=== PATIENT | female | born 1965 | race Caucasian/White ===

== ENCOUNTER → 2019-05-26 | Outpatient (CLI) | payer OTHER ==
[2019-05-26 15:38] LABS: Appearance,Urine Clear (Clear); Bilirubin,Urine Negative (Negative); Blood,Urine Negative (Negative); Color,Urine Light Yellow; Glucose,Urine (UA) Negative (Negative); Ketones,Urine Negative (Negative); Leukocyte Esterase,Urine Moderate (Negative); Mucus,Urine Rare /hpf; Nitrite,Urine Negative (Negative); PH, Urine 5.5 (5.0-8.0); Protein,Urine Negative (Negative); RBC,Urine 1 /hpf (0-5); Specific Gravity,Urine 1.015 (1.001-1.035); Squamous Epithelial Cell,Urine 2 /hpf (0-4); Urobilinogen,Urine <2.0 mg/dL (<2.0); WBC,Urine 10 /hpf (0-5)
[2019-05-26 15:44] LABS: INR 0.9 (<1.2); Partial Thromboplastin Time 25.8 sec (22.0-30.0); Prothrombin Time 10.2 sec (9.0-12.0)
[2019-05-26 15:57] LABS: Albumin 4.5 g/dL (3.5-5.0); Calcium 9.9 mg/dL (8.4-10.2); Potassium 4.7 mmol/L (3.5-5.1); Total Bilirubin 0.5 mg/dL (0.2-1.3); Total Protein 7.5 g/dL (6.3-8.2)
== END | disposition home or self-care (01) ==
LOC: LABPAT 14:18
PROVIDERS: ATTEND Orthopaedic Surgery
DX: Z01.818 Encounter for other preprocedural examination (principal); Z01.812 Encounter for preprocedural laboratory examination
CPT/HCPCS: 80053; 81001; 85610; 85730; 87070; 93005

== ENCOUNTER 2019-06-09 05:29 | Inpatient (IN) | payer OTHER ==
[2019-06-03 09:48] VITALS: BMI 35.3
[~2019-06-09 05:29] MED LIST: ACETAMINOPHEN TAB 500 MG TAB PO ONE; GABAPENTIN 300 MG CAP PO ONE; MELOXICAM 7.5 MG TAB PO ONE; TRANEXAMIC ACID 1,000 MG in SODIUM CHLORIDE 0.9% 100 ML IVPB ONE
[2019-06-09] MEDS ORDERED: MIDAZOLAM 2 MG/2 ML VIAL IV PRN (05:34)
[2019-06-09] MEDS ORDERED: DEXAMETHASONE SOD PHOSPHATE 10 MG/ML 1 ML VIAL IV ONE (05:34)
[2019-06-09] MEDS ORDERED: HYDROmorphone 0.5 MG/0.5 ML SYRINGE IVP PRN ×3 (05:34→06:51)
[2019-06-09] MEDS ORDERED: ONDANSETRON 4 MG/2 ML VIAL IVP ONE (05:34)
[2019-06-09] MEDS ORDERED: SCOPOLAMINE 1.5MG/72HR PATCH TRANSDERM ONE (05:34)
[2019-06-09] MEDS ORDERED: ROPIVACAINE 246.25 MG, EPINEPHrine 0.5 MG, KETOROLAC 30 MG, cloNIDine HCL/PF 80 MCG, WA... MISCELLANE ONE ×5 (06:00)
[2019-06-09] MEDS: LACTATED RINGERS 1,000 ML IV SCH (06:27)
[2019-06-09] MEDS ORDERED: MIDAZOLAM 2 MG/2 ML VIAL ONE (06:50)
[2019-06-09] MEDS ORDERED: SODIUM CHLORIDE 0.9% 100 ML BAG ONE (06:50)
[2019-06-09] MEDS ORDERED: GLYCOPYRROLATE 0.2 MG/ML 2 ML VIAL ONE (06:50)
[2019-06-09] MEDS ORDERED: SODIUM CHLORIDE 0.9% IRRIG 1,000 ML BTL IRRIGATION ONE (06:50)
[2019-06-09] MEDS ORDERED: TRANEXAMIC ACID 1,000 MG/10 ML VIAL ONE (06:50)
[2019-06-09] MEDS ORDERED: PROPOFOL 10 MG/ML 20 ML VIAL IV ONE (06:50)
[2019-06-09] MEDS ORDERED: HEPARIN SODIUM,PORCINE 10,000 UNIT/ML 1 ML VIAL ONE (06:50)
[2019-06-09] MEDS ORDERED: MAGNESIUM HYDROXIDE 2,400 MG/10 ML CUP PO PRN (06:51)
[2019-06-09] MEDS ORDERED: HYDROcodone/APAP 5-325MG 1 EACH TAB PO PRN (06:51)
[2019-06-09] MEDS ORDERED: DIAZEPAM 5 MG TAB PO PRN (06:51)
[2019-06-09] MEDS ORDERED: HYDROmorphone 1 MG/ML 1 ML SYRINGE IVP PRN (06:51)
[2019-06-09] MEDS ORDERED: NALOXONE 0.4 MG/ML 1 ML VIAL IV PRN (06:51)
[2019-06-09] MEDS ORDERED: ONDANSETRON 4 MG/2 ML VIAL IVP PRN (06:51)
[2019-06-09] MEDS ORDERED: hydrOXYzine PAMOATE 25 MG CAP PO PRN (06:51)
[2019-06-09] MEDS ORDERED: ceFAZolin 3,000 MG in SODIUM CHLORIDE 0.9% IRRIGATIO 3,000 ML IRRIGATION ONE (06:53)
[2019-06-09] MEDS ORDERED: LACTATED RINGERS 1,000 ML IV ONE (07:40)
--- NOTE | 2019-06-09 08:28 | P.OP ---
Date of Procedure: 06/09/19 Preoperative Diagnosis: Severe osteoarthritis left hip Postoperative Diagnosis: Severe osteoarthritis left hip Procedure(s) Performed: Left total hip arthroplasty with a direct anterior approach Implants: Grant and nephew Polarstem size 5 standard Grant & Nephew R3, 3 hole acetabular shell, 52 mm Grant [employer] Nephew reflection 6.5 mm cancellus screw, 20 mm 2 Grant [employer] Nephew R3, XLPE 20 acetabular liner Grant & Nephew Oxinium femoral head 36 m, +0 All components were press-fit. The articulation is Oxinium on polyethylene. Anesthesia: spinal Surgeon: Armando Brice Environmental Systems Coordinator #1: Gaby Reza Estimated Blood Loss (ml): 100 Pathology: other (Femoral head) Condition: stable Disposition: PACU Indications for Procedure: After failure of conservative treatment we discussed the surgical and nonsurgical treatment options at length. Patient wishes to proceed with a total hip arthroplasty with a direct anterior approach. Complications specific to this procedure were discussed at length, including but not limited to infection, leg length discrepancy, dislocation, and nerve injury. Patient is aware of all these complications and informed consent was obtained Operative Findings: The operative findings are consistent with severe osteoarthritis of the left hip Description of Procedure: Patient was seen and evaluated in the preoperative area, consent was reviewed, and the surgical site was marked with a skin marker. Patient was then brought to the operating room and given prophylactic antibiotics intravenously. 1 g of Tranexamic acid was also given. A spinal anesthetic was administered by the anesthesia department. The patient was then placed on the [place] table with the bony prominences well-padded. The hip area was then prepped and draped in usual sterile fashion. A universal timeout was then performed, which confirmed the patient's name, surgical site, ALLERGIES, and procedure being performed. Next the incision site was located at 1 cm distal and 1 cm lateral to the anterior superior iliac spine. The skin and subcutaneous tissues were sharply incised. Incision was carefully dissected down to the fascia overlying the tensor fascia dian muscle. This fascia was then incised in line with the incision. Next, using blunt finger dissection, the tensor fascia dian muscle was dissected off its investing fascia. The muscle was then carefully retracted laterally with a cobra retractor over the lateral neck of the femur. Next, the circumflex vessels were identified and cauterized using the AquaMantis device. The anterior hip capsule was then exposed. The capsule was then opened and an inverted T fashion. Cobra retractors were then placed intracapsularly. The proximal femur was then visualized. The femoral neck was then osteotomized appropriate level above the lesser trochanter. Small amount of traction was placed with the [place] table. A small wedge of bone was then removed from the remaining femoral head. Next, using a corkscrew femoral head was easily removed from the acetabulum. On gross visual inspection, the femoral head had complete loss of articular cartilage in multiple periarticular osteophytes. Attention was then turned to the acetabulum. the acetabulum was exposed and any remaining labrum was excised. Sequential reaming of the acetabulum was performed using fluoroscopic guidance. When the appropriate size was reached, a trial was then placed. The position and fit of the trial was checked with fluoroscopy. The trial was then removed. Then, using fluoroscopic guidance, the final implant was impacted at 20 of anteversion and 40 of abduction, and fully seated in the acetabulum. 2 screws were then placed in the acetabulum. Again fluoroscopy was used to check position of the screws. Next, the liner was then impacted, with a 20 elevated liner located in the anterior superior quadrant. Component locking was confirmed. Attention was then directed to the femur. With the aid of the [place] table, the femur was externally rotated to approximately 130, extended, and abducted under the opposite leg. A side hook was then placed under the proximal femur, and the side hook elevator was used to elevate the proximal femur. Retractors were then placed. A capsular release was performed, as well as a release of the conjoined tendon, which afforded excellent visualization of the proximal femur. Next, a box osteotome was used to lateralize the proximal femur. A handle and vent machine operator was then used to locate the femoral canal. Sequential broaching was then performed with appropriate size which afforded excellent fixation in the proximal femur. A trial was then placed with appropriate head and neck, and the hip was gently reduced with the aid of the [place] table. Fluoroscopy was then used to check position of the components, as well as to ensure equal leg lengths. The hip was then gently dislocated and the trials were then removed. Final implants were then impacted and the hip was again reduced. Final fluoroscopic x-rays confirmed that the components were in anatomic position, as well as equal leg lengths. The hip was also taken through range of motion, and found to be s table. The hip was then copiously irrigated with antibiotic solution with pulsatile lavage. The hip was then irrigated with Irrisept solution. The soft tissues were then injected with a ropivacaine solution, which consisted of 246.25 mg of ropivacaine, 0.5 mg of epinephrine, 30 mg of Toradol, 80 g of clonidine, and 48.45 mL of sterile water, for a total of 100 mL of fluid injected. A second d ose of 1 g of Tranexamic acid was also given. the fascia was then closed with 2-0 strata fix suture. The subcutaneous tissue was closed with 3-0 Vicryl. The subcuticular tissue was closed with 3-0 strata fix suture. The skin was then closed with Dermabond glue and a sterile silver dressing. The patient was then transferred to the recovery room in stable condition. The middle school assistant principal MELISSA Garcia was required due to the complexity of surgery, and the need for skilled surgical garment inspector for positioning, draping, exposure, retraction, and closure of the wound.
--- NOTE | 2019-06-09 08:43 | FL ---
EXAMINATION TYPE: FL guidance operating room, XR Hip Limited LT DATE OF EXAM: 06/09/2019 CLINICAL HISTORY: Left hip pain and osteoarthritis. TECHNIQUE: Fluoroscopy. Limited intraoperative views left hip. COMPARISON: None. FINDINGS: Fluoroscopic guidance was provided during hip replacement procedure performed by Dr. Navi nascimento. A total of 35 seconds of fluoroscopic time was utilized during the procedure and two spot intra operative images are acquired. Images acquired show metallic artifact from total hip arthroplasty satisfactory in position on fronta l projection. IMPRESSION: As Above.
--- NOTE | 2019-06-09 09:09 | XR ---
EXAMINATION TYPE: XR Hip Limited LT DATE OF EXAM: 06/09/2019 CLINICAL HISTORY: Left hip pain and osteoarthritis. TECHNIQUE: Single AP portable view of the hip is obtained immediately postoperatively. COMPARISON: None. FINDINGS: Metallic hardware from left hip arthroplasty is seen and appears satisfactory in alignment and position. There is evidence of recent surgery with subcutaneous gas noted laterally extending alcaraz periorly. IMPRESSION: Metallic hardware from left hip arthroplasty is satisfactory in position.
[2019-06-09] MEDS: SODIUM CHLORIDE 0.9% 1,000 ML IV SCH ×2 (11:57→21:03)
--- NOTE | 2019-06-09 15:00 | P.CONS ---
History of Present Illness - Reason for Consult Consult date: 06/09/19 Medical management of rheumatoid arthritis Requesting physician: Armando Iraheta - Chief Complaint Animal Keeper medical management of rheumatoid arthritis - History of Present Illness The patient is a 53-year-old female with a past history of rheumatoid arthritis, osteoarthritis, depression, acid reflux and hyperlipidemia who is currently admitted to orthopedic service under Dr. iraheta and is postop after having left total hip arthroplasty with a direct anterior approach secondary to history of severe left hip osteoarthritis. Patient reports her pain is well- controlled rates it at a 1 out of 10, she has been up and ambulatory with minimal assistance with the guidance of physical therapy down the márquez and back with a walker. She denies any chest pain or shortness of breath, she denies any nausea or vomiting or abdominal pain. Patient reports that she recently followed up with her information resource consultant yesterday and was told that her rheumatoid arthritis is causing increasing joint instruction in her hands and hips, the patient was told that she would be evaluated and likely started on Humira and many year and has a follow-up appointment 07/27. The patient also reports that she has been controlled on her Prozac for the last 30 years and denies any depressive symptomatology. The patient otherwise has no other complaints Review of Systems Pertinent positives per HPI all other review of system otherwise negative Past Medical History Past Medical History: Hyperlipidemia, Rheumatoid Arthritis (RA) History of Any Multi-Drug Resistant Organisms: None Reported Past Surgical History: Orthopedic Surgery, Tubal Ligation Additional Past Surgical History / Comment(s): left foot bunion/hammertoe Past Anesthesia/Blood Transfusion Reactions: No Reported Reaction Past Psychological History: Depression Smoking Status: Never smoker Past Alcohol Use History: None Reported Past Drug Use History: None Reported - Past Family History Mother Family Medical History: Cancer, Deep Vein Thrombosis (DVT) Medications and Allergies Home Medications Medication Instructions Recorded Confirmed Type Atorvastatin [Lipitor] 20 mg PO DAILY 06/03/19 06/09/19 History Black Cohosh 1 tab PO DAILY 06/03/19 06/09/19 History Calcium Carbonate/Vitamin D3 1 each PO DAILY 06/03/19 06/09/19 History [Calcium 500-Vit D3 200 Tablet] Diclofenac Sodium [Voltaren] 75 mg PO BID 06/03/19 06/09/19 History FLUoxetine HCL [PROzac] 40 mg PO HS 06/03/19 06/09/19 History Folic Acid 1 tab PO DAILY 06/03/19 06/09/19 History Garlic 1 each PO DAILY 06/03/19 06/09/19 History Glucos Sul 2Kcl/MSM/Chond/C/Mn 1 each PO DAILY 06/03/19 06/09/19 History [Glucosamine Chondroitin Cap] HYDROcodone/APAP 7.5-325MG [[place] 1 tab PO TID PRN 06/03/19 06/09/19 History 7.5-325] Hydroxychloroquine Sulfate 200 mg PO BID 06/03/19 06/09/19 History [Plaquenil] L.acidoph,Paracasei, B.lactis 1 each PO DAILY 06/03/19 06/09/19 History [Probiotic] Methotrexate 1 ml INJ WE 06/03/19 06/09/19 History Multivitamins, Thera [Multivitamin 1 tab PO DAILY 06/03/19 06/09/19 History (formulary)] [place]-3 Fatty Acids/Fish Oil [Fish 1 each PO DAILY 06/03/19 06/09/19 History Oil 1,000 mg Softgel] Omeprazole [PriLOSEC] 20 mg PO DAILY 06/03/19 06/09/19 History Allergies Allergy/AdvReac Type Severity Reaction Status Date / Time sulfamethoxazole Allergy Unknown Verified 06/09/19 06:02 [From Bactrim] trimethoprim [From Bactrim] Allergy Unknown Verified 06/09/19 06:02 Physical Exam Vitals: Vital Signs Temp Pulse Resp BP Pulse Ox 06/09/19 14:19 98.3 F 65 20 113/72 97 06/09/19 12:31 59 L 16 103/59 94 L 06/09/19 12:02 69 16 104/59 96 06/09/19 11:30 59 L 14 96/53 96 06/09/19 11:01 58 L 16 89/53 94 L 06/09/19 10:30 63 16 88/49 94 L 06/09/19 10:03 64 16 85/50 93 L 06/09/19 09:46 65 16 90/51 95 06/09/19 09:33 62 16 91/50 97 06/09/19 09:16 63 16 90/45 98 06/09/19 09:00 56 L 16 106/51 99 06/09/19 08:47 69 16 109/53 97 06/09/19 08:35 97.6 F 68 16 103/58 97 06/09/19 05:48 98.4 F 64 16 122/58 98 Intake and Output 06/08/19 06/09/19 06/09/19 22:59 06:59 14:59 Intake Total 1001 450 Output Total 500 Balance 1001 -50 Intake: IV 1001 450 Output: Urine 400 Estimated Blood Loss 100 Other: Voiding Method Toilet Weight 85.729 kg 85.729 kg Constitutional: No acute distress, conversant, pleasant Eyes: Anicteric sclerae, moist conjunctiva, no lid-lag, PERRLA ENMT: NC/AT,Oropharynx clear, no erythema, exudates Neck:Supple, FROM, no masses, or JVD, No carotid bruits; No thyromegaly Lungs: Clear to auscultation, Clear to percussion, Normal respiratory effort, no accessory muscle use Cardiovascular: Heart regular in rate and rhythm, No murmurs, gallops, or rubs no peripheral edema Abdominal: Soft Nontender, nom distended, no guarding, no rebound or rigidity, Normoactive bowel sounds No hepatomegaly, No splenomegaly, No palpable mass No abdominal wall hernia noted Skin: Normal temperature, tone, texture, turgor, No induration No subcutaneous nodules, No rash, lesions, No ulcers Extremities: Boutonierre deformity of thumb, and swan-neck deformity of the fingers Psychiatric: Alert and oriented to person, place and time, Appropriate affect Intact judgement Neuro: Muscles Strength 5/5 in all 4 extremities, Sensation to light touch grossly present throughout, Cranial nerves II-XII grossly intact. No focal sensory deficits Results CBC & Chem 7: 06/10/19 07:00 Assessment and Plan Assessment: GERD Hyperlipidemia Depression Rheumatoid arthritis Osteoarthritis Status post total left hip arthroplasty Plan: The patient is doing well and is hemodynamically stable after having a left total hip arthroplasty, she has been up and amphotericin continues to work with PT. Will defer all analgesic therapies to her primary orthopedic service. She is restarted on all her home medications, her natural supplements and multivitamins are held. I appreciate the opportunity to be involved in this patient's ongoing care. For further questions please not hesitate to contact sound inpatient team
[2019-06-09 16:52] LABS: Glucose,Whole Blood 177 mg/dL (75-99)
[2019-06-09] MEDS ORDERED: SENNOSIDES-DOCUSATE SODIUM 1 EACH TAB PO SCH (21:00)
[2019-06-09] MEDS: ASPIRIN 325 MG TAB PO SCH (21:00)
[2019-06-09] MEDS: HYDROXYCHLOROQUINE SULFATE 200 MG TAB PO SCH (21:00)
[2019-06-09] MEDS ORDERED: FLUoxetine HCL 20 MG CAP PO SCH (21:00)
[2019-06-09 21:43] VITALS: RESP 16
[2019-06-09] MEDS: HYDROcodone/APAP 5-325MG 1 EACH TAB PO PRN (23:13)
[2019-06-10] MEDS: LACTATED RINGERS 1,000 ML IV SCH (00:14)
[2019-06-10 07:26] LABS: Basophils % (A) 0 %; Eosinophils % (A) 1 %; Lymphocytes # (A) 0.7 k/uL (1.0-4.8); Lymphocytes % (A) 10 %; MCH 31.7 pg (25.0-35.0); MCHC 33.3 g/dL (31.0-37.0); MCV 95.1 fL (80.0-100.0); Mean Platelet Volume 6.7; Monocytes # (A) 0.3 k/uL (0-1.0); Monocytes % (A) 5 %; Neutrophils # (A) 5.4 k/uL (1.3-7.7); Neutrophils % (A) 83 %; Platelet Count 204 k/uL (150-450); RBC 3.47 m/uL (3.80-5.40); RDW 13.4 % (11.5-15.5); WBC 6.5 k/uL (3.8-10.6)
[2019-06-10] MEDS ORDERED: PANTOPRAZOLE 40 MG TABLET PO SCH (07:30)
[2019-06-10] MEDS: HYDROcodone/APAP 5-325MG 1 EACH TAB PO PRN (07:43)
[2019-06-10] MEDS: ASPIRIN 325 MG TAB PO SCH (07:44)
[2019-06-10] MEDS: HYDROXYCHLOROQUINE SULFATE 200 MG TAB PO SCH (07:44)
--- NOTE | 2019-06-10 08:13 | P.PN ---
Subjective Progress Note Date: 06/10/19 Patient doing well denies any nausea or vomiting eating breakfast this morning has been up and laboratory with PT no acute events overnight. Objective - Vital Signs Vital signs: Vital Signs Temp 98.2 F 06/10/19 00:30 Pulse 58 L 06/10/19 00:30 Resp 16 06/09/19 21:42 BP 112/70 06/10/19 00:30 Pulse Ox 96 06/10/19 00:30 Intake & Output 06/09/19 06/10/19 06/10/19 18:59 06:59 18:59 Intake Total 450 1080 Output Total 800 Balance -350 1080 Weight 85.729 kg Intake: IV 450 Oral 1080 Output: Urine 700 Estimated Blood Loss 100 Other: Voiding Method Toilet - Exam Constitutional: No acute distress, conversant, pleasant Eyes: Anicteric sclerae, moist conjunctiva, no lid-lag, PERRLA ENMT: NC/AT,Oropharynx clear, no erythema, exudates Neck:Supple, FROM, no masses, or JVD, No carotid bruits; No thyromegaly Lungs: Clear to auscultation, Clear to percussion, Normal respiratory effort, no accessory muscle use Cardiovascular: Heart regular in rate and rhythm, No murmurs, gallops, or rubs no peripheral edema Abdominal: Soft Nontender, nom distended, no guarding, no rebound or rigidity, Normoactive bowel sounds No hepatomegaly, No splenomegaly, No palpable mass No abdominal wall hernia noted Skin: Normal temperature, tone, texture, turgor, No induration No subcutaneous nodules, No rash, lesions, No ulcers Extremities: Boutonierre deformity of thumb, and swan-neck deformity of the fingers Psychiatric: Alert and oriented to person, place and time, Appropriate affect Intact judgement Neuro: Muscles Strength 5/5 in all 4 extremities, Sensation to light touch grossly present throughout, Cranial nerves II-XII grossly intact. No focal sensory deficits - Labs CBC & Chem 7: 06/10/19 07:00 Labs: Abnormal Lab Results - Last 24 Hours (Table) 06/09/19 06/10/19 Range/Units 16:50 07:00 RBC 3.47 L (3.80-5.40) m/uL Hgb 11.0 L (11.4-16.0) gm/dL Hct 33.0 L (34.0-46.0) % Lymphocytes # 0.7 L (1.0-4.8) k/uL POC Glucose (mg/dL) 177 H (75-99) mg/dL Assessment and Plan Assessment: Postop anemia * Mild expected complication of surgery GERD * Stable continue home regimen Hyperlipidemia * Stable continue home regimen Depression * Stable continue home regimen Rheumatoid arthritis * Patient to follow-up with her dialysis biomed technician who is considering initiation of biologics such as Humira Osteoarthritis Status post total left hip arthroplasty * Management per primary orthopedic service * Patient up and ambulatory working with PT Disposition * Patient stable for discharge today
--- NOTE | 2019-06-10 08:26 | P.DS ---
Providers Date of admission: 06/09/19 05:29 Expected date of discharge: 06/10/19 Attending physician: Armando Brice Consults: 06/09/19 06:51 Consult Physician Routine Consulting Provider: Hernando Willoughby Consult Reason/Comments: medical management Do you want consulting provider notified?: Yes Primary care physician: Mingo Paganani - Discharge Diagnosis(es) (1) Osteoarthritis of left hip Current Visit: Yes Status: Acute (2) S/P total hip arthroplasty Current Visit: Yes Status: Acute Hospital Course: This is a 53-year-old female with known history of degenerative arthritis of the left hip. The patient presents for evaluation. After discussion and consideration patient elects to proceed with total hip arthroplasty. The patient is seen preoperatively by Dr. Brice and medically cleared for surgery by their primary care physician. Patient is admitted to [facility] on 06/09/2019 for total hip arthroplasty. The procedures performed without complication or sequelae. The patient is doing well postoperatively. Labs and vital signs are stable on day of discharge. On day of discharge patient's hip incision is healing well. There is minimal erythema. There is no drainage noted at this time. There is minimal soft tissue swelling to the hip and thigh. Patient has full foot and ankle motion without difficulty or pain. Calf is soft and nontender to palpation. Neurovascular status to the left lower extremity is intact. Patient is discharged home in good condition. Opioid start talking form is reviewed and signed at patient bedside. Please see med rec for accurate list of home medications. Plan - Discharge Summary Discharge Rx Participant: Yes New Discharge Prescriptions: New Aspirin 325 mg PO BID #60 tab HYDROcodone/APAP 5-325MG [[place] 5-325] 1 - 2 tab PO Q6HR PRN #56 tab PRN Reason: Pain Sennosides [Senokot] 1 tab PO BID #60 tablet No Action Multivitamins, Thera [Multivitamin (formulary)] 1 tab PO DAILY FLUoxetine HCL [PROzac] 40 mg PO HS Atorvastatin [Lipitor] 20 mg PO DAILY Diclofenac Sodium [Voltaren] 75 mg PO BID Omeprazole [PriLOSEC] 20 mg PO DAILY [place]-3 Fatty Acids/Fish Oil [Fish Oil 1,000 mg Softgel] 1 each PO DAILY Methotrexate 1 ml INJ WE L.acidoph,Paracasei, B.lactis [Probiotic] 1 each PO DAILY Hydroxychloroquine Sulfate [Plaquenil] 200 mg PO BID HYDROcodone/APAP 7.5-325MG [[place] 7.5-325] 1 tab PO TID PRN PRN Reason: Pain Glucos Sul 2Kcl/MSM/Chond/C/Mn [Glucosamine Chondroitin Cap] 1 each PO DAILY Garlic 1 each PO DAILY Folic Acid 1 tab PO DAILY Calcium Carbonate/Vitamin D3 [Calcium 500-Vit D3 200 Tablet] 1 each PO DAILY Black Cohosh 1 tab PO DAILY Discharge Medication List Atorvastatin [Lipitor] 20 mg PO DAILY 06/03/19 [History] [place] 1 tab PO DAILY 06/03/19 [History] Calcium Carbonate/Vitamin D3 [Calcium 500-Vit D3 200 Tablet] 1 each PO DAILY 06/03/19 [History] Diclofenac Sodium [Voltaren] 75 mg PO BID 06/03/19 [History] FLUoxetine HCL [PROzac] 40 mg PO HS 06/03/19 [History] Folic Acid 1 tab PO DAILY 06/03/19 [History] Garlic 1 each PO DAILY 06/03/19 [History] Glucos Sul 2Kcl/MSM/Chond/C/Mn [Glucosamine Chondroitin Cap] 1 each PO DAILY 06/03/19 [History] HYDROcodone/APAP 7.5-325MG [[place] 7.5-325] 1 tab PO TID PRN 06/03/19 [History] Hydroxychloroquine Sulfate [Plaquenil] 200 mg PO BID 06/03/19 [History] L.acidoph,Paracasei, B.lactis [Probiotic] 1 each PO DAILY 06/03/19 [History] Methotrexate 1 ml INJ WE 06/03/19 [History] Multivitamins, Thera [Multivitamin (formulary)] 1 tab PO DAILY 06/03/19 [History] [place]-3 Fatty Acids/Fish Oil [Fish Oil 1,000 mg Softgel] 1 each PO DAILY 06/03/19 [History] Omeprazole [PriLOSEC] 20 mg PO DAILY 06/03/19 [History] Aspirin 325 mg PO BID #60 tab 06/10/19 [Rx] HYDROcodone/APAP 5-325MG [[place] 5-325] 1 - 2 tab PO Q6HR PRN #56 tab 06/10/19 [Rx] Sennosides [Senokot] 1 tab PO BID #60 tablet 06/10/19 [Rx] Follow up Appointment(s)/Referral(s): Armando Brice DO [Doctor of Osteopathic Medicine] - 2 Weeks Activity/Diet/Wound Care/Special Instructions: Weightbearing as tolerated with walker. Leave dressing intact. Dressing may be removed by home care nurse or by patient in 10 days. May shower with dressing on. Recommend use of compression stockings daily for at least 2 weeks during the day to help prevent swelling and blood clots. May remove at night before sleeping. Please follow-up with [facility] in 2 weeks and call with any questions or concerns, . Discharge Disposition: HOME WITH HOME HEALTH SERVICES
[2019-06-10 08:35] VITALS: BP 99/55; PULSE 67; TEMP 98.4
[2019-06-10] MEDS ORDERED: ATORVASTATIN 20 MG TAB PO SCH (09:00)
[2019-06-10] MEDS ORDERED: FOLIC ACID 1 MG TAB PO SCH (09:00)
[2019-06-10] MEDS ORDERED: MELOXICAM 7.5 MG TAB PO SCH (09:00)
[2019-06-10] MEDS ORDERED: GARLIC PO SCH (09:00)
--- NOTE | 2019-06-10 11:32 | CDI ---
Documentation Clarification Form Date: 06/10/2019 11:13:07 AM From: Fabiola Jones RN, CCDS Admit Date: 06/09/2019 5:29:00 AM Patient Name: Shreya Espinoza Visit Number: [id number] Discharge Date: ATTENTION: The Clinical Documentation Specialists (CDI) and [facility] Coding Staff appreciate your assistance in clarifying documentation. Please respond to the clarification below the line at the bottom and electronically sign. The CDI & [facility] Coding staff will review the response and follow-up if needed. Please note: Queries are made part of the Legal Health Record. If you have any questions, please contact the author of this message via ITS. Dr. Jimmy Smyth A diagnosis of anemia lacks specificity to accurately reflect your patients severity of condition and clarification is needed. History/Risk Factors: Rheumatoid arthritis Clinical indicators: 53-year-old female with left hip pain present for elective hip arthroplasty on 06/09/19. 06/10/19 progress note has, postop mild anemia expected. The OR report notes estimated blood loss 100 mls. 06/10/19 Hemoglobin: 11.0 06/10/19 Hematocrit: 33.0 Treatment: continue home meds, list multivitamins In order to capture the severity of condition, please clarify the type of anemia and etiology if known: Acute blood loss anemia, expected Unable to determine Other, please specify (Last Revision: April 2017) Acute blood loss anemia expected MTDD
== END 2019-06-10 12:40 | disposition home health service (06) | DRG 470 ==
LOC: 2ORMAIN 05:29 → 4SSUR 08:35
PROVIDERS: ADMIT Orthopaedic Surgery; ATTEND Orthopaedic Surgery
PROC: 0SRB06A Replacement of Left Hip Joint with Oxidized Zirconium on Polyethylene Synthetic Substitute, Uncemented, Open Approach (ICD-10-PCS; principal; 2019-06-09 07:00)
DX: M16.12 Unilateral primary osteoarthritis, left hip (principal); D62 Acute posthemorrhagic anemia; E78.5 Hyperlipidemia, unspecified; F32.9 Major depressive disorder, single episode, unspecified; K21.9 Gastro-esophageal reflux disease without esophagitis; M06.9 Rheumatoid arthritis, unspecified; Z79.899 Other long term (current) drug therapy
CPT/HCPCS: 73501; 85025; 86850; 86891; 86900; 86901; 88300

== ENCOUNTER → 2020-04-25 | Outpatient (CLI) | payer OTHER ==
--- NOTE | 2020-04-25 11:48 | MR ---
EXAMINATION TYPE: MR lumbar spine wo con DATE OF EXAM: 04/25/2020 COMPARISON: NONE HISTORY: Radiculopathy to Rt hip per order. History of rheumatoid arthritis with pain into bilateral buttocks per patient. TECHNIQUE: Multiplanar, multisequence imaging of the lumbar spine is performed without IV contrast. FINDINGS: Sagittal images of the lumbar spine show vertebral body heights to appear satisfactory. Sli ght grade 1 retrolisthesis of L3 on L4 and L4-L5. Focal low signal possible artifact from disc materi al suspected at these levels. Additional artifact from left hip arthroplasty noted on survey. Multile cornell disc desiccation with disc space heights maintained. The conus medullaris is normal in position and signal ending at T12-L1 disc space level. The bone marrow signal intensity is within normal limi ts. Axial images at the T12-L1 level are within normal limits. Axial images at the L1-L2 level show mild left broad-based paracentral disc protrusion effaces the an terior thecal sac. Patent bilateral neural foramina. Axial images at L2-L3 level show mild/moderate broad disc bulge effacing anterior thecal sac with mil d bilateral anteroinferior neural foraminal narrowing. Axial images at L3-L4 levels moderate facet arthropathy and ligamentum flavum hypertrophy effacing th e posterior lateral thecal sac. The spondylolisthesis with broad disc bulge effaces the anterior thec al sac. There is severe left and mild to moderate right-sided neural foraminal narrowing. Encroachmen t on left L3 nerve of present sagittal image 3 and axial image obtained due to foraminal disc protrus ion component. Axial images at the L4-L5 level show spondylolisthesis with moderate to advanced facet arthropathy an d ligament flavum hypertrophy effacing the posterior lateral thecal sac. Spinal canal stenosis noted axial image 8 greater than at L3-L4 level. Spondylolisthesis and broad-based posterior disc protrusio n causes moderate to severe right and mild to moderate left-sided neural foraminal narrowing. Encroac hment right L4 nerve sella present axial image 8 and sagittal image 11. Axial images at L5-S1 level show sacralized L5 segment bilaterally. Mild to moderate facet arthropath y bilaterally. Spinal canal preserved. Patent bilateral neural foramina. IMPRESSION: Most significant findings noted L3-L4 and L4-L5 level as detailed above.
== END | disposition home or self-care (01) ==
LOC: RADMRIMAIN 07:39
PROVIDERS: ATTEND Legal Medicine
DX: M48.061 Spinal stenosis, lumbar region without neurogenic claudication (principal); M51.26 Other intervertebral disc displacement, lumbar region; M43.16 Spondylolisthesis, lumbar region; M47.896 Other spondylosis, lumbar region; M54.16 Radiculopathy, lumbar region
CPT/HCPCS: 72148

== ENCOUNTER → 2020-10-14 | Outpatient (CLI) | payer OTHER ==
--- NOTE | 2020-10-16 13:40 | BD ---
EXAMINATION TYPE: Axial Bone Density DATE OF EXAM: 10/14/2020 COMPARISON: NONE CLINICAL HISTORY: 55-year-old female postmenopausal screening. Height: 61.7 IN Weight: 179 LBS FRAX RISK QUESTIONS: Secondary Osteoporosis: Rheumatoid Arthritis: YES RISK FACTORS HISTORY OF: History of Wrist Fracture: LT WRIST FX AGE 42 Surgery to Hip(left): YES LT 2019 Family History of Osteoporosis: YES MOTHER AND GRANDMOTHER Active: YES Diet low in dairy products/other sources of calcium: YES Postmenopausal woman: AGE 47 MEDICATIONS: Additional Medications: CALCIUM, VIT D, PRILOSEC, PLAQUENIL, Methotrexate, LIPITOR, INFLECT INFUSION S EVERY 2 MONTHS EXAM MEASUREMENTS: Bone mineral densitometry was performed using the [employer] System. Bone mineral density as measured about the Lumbar spine is: ----- L1-L4(G/cm2): 1.124 T Score Values are as follows: ----- L2: -2.3 ----- L3: -1.1 ----- L4: 2.4 (degenerative sclerosis elevating the bone density measurement) ----- L1-L4: -0.5 Bone mineral density BASELINE Bone mineral density about the R hip (g/cm2): 0.806 T Score values are as follows: -----R Neck: -1.7 -----R Total: -2.1 Bone mineral density BASELINE IMPRESSION: Osteopenia (T Score between -2.5 and -1). There is slightly increased risk of fracture and the patient may be considered for treatment. Re-Screen 2-5 years. NOTE: T-SCORE=SD OF THE YOUNG ADULT MEAN.
--- NOTE | 2020-10-17 08:45 | MM ---
Reason for exam: screening (asymptomatic). Last mammogram was performed 1 year and 2 months ago. History: Patient is postmenopausal. Took hormonal contraceptives for 5 years. Physical Findings: A clinical breast exam by your physician is recommended on an annual basis and results should be correlated with mammographic findings. MG Screening Mammo w CAD Bilateral CC and MLO view(s) were taken. Prior study comparison: August 12, 2019, bilateral MG screening mammo w CAD. November 10, 2013, mammogram, performed at [facility]. The breast tissue is heterogeneously dense. This may lower the sensitivity of mammography. There are benign appearing round calcifications bilaterally. Focal asymmetry right middle breast central CC view only. This finding is changed when compared with previous exams. ASSESSMENT: Incomplete: need additional imaging evaluation, BI-RAD 0 RECOMMENDATION: Special view mammogram of the right breast. If lesion persists on supplemental views, image directed ultrasound is recommended. [facility] will attempt to contact patient to return for supplemental views and ultrasound if indicated.
== END | disposition home or self-care (01) ==
LOC: RADMAMWWP 09:43
PROVIDERS: ATTEND Family Medicine
DX: Z12.31 Encounter for screening mammogram for malignant neoplasm of breast (principal); M85.89 Other specified disorders of bone density and structure, multiple sites; Z78.0 Asymptomatic menopausal state
CPT/HCPCS: 77067; 77080

== ENCOUNTER → 2020-10-18 | Outpatient (CLI) | payer OTHER ==
--- NOTE | 2020-10-18 13:16 | MM ---
Reason for exam: additional evaluation requested from abnormal screening. Last mammogram was performed less than 1 month ago. History: Patient is postmenopausal. Took hormonal contraceptives for 5 years. Physical Findings: Nurse did not find any significant physical abnormalities on exam. MG Work Up Mamm w CAD RT Spot compression CC and LM view(s) were taken of the right breast. Prior study comparison: October 14, 2020, bilateral MG screening mammo w CAD. August 12, 2019, bilateral MG screening mammo w CAD. The breast tissue is heterogeneously dense. This may lower the sensitivity of mammography. Central right asymmetric density disperses on additional views. No significant new findings when compared with previous films. These results were verbally communicated with the patient and result sheet given to the patient on 10/18/20. ASSESSMENT: Negative, BI-RAD 1 RECOMMENDATION: Return to routine screening mammogram schedule for both breasts.
== END | disposition home or self-care (01) ==
LOC: RADMAMWWP 10:34
PROVIDERS: ATTEND Family Medicine
DX: Z78.0 Asymptomatic menopausal state (principal)
CPT/HCPCS: 77065

== ENCOUNTER → 2021-11-07 | Outpatient (CLI) | payer OTHER ==
--- NOTE | 2021-11-08 11:43 | MM ---
Reason for exam: screening (asymptomatic). Last mammogram was performed 1 year and 1 month ago. History: Patient is postmenopausal. Took hormonal contraceptives for 5 years. Physical Findings: A clinical breast exam by your physician is recommended on an annual basis and results should be correlated with mammographic findings. MG Screening Mammo w CAD Bilateral CC and MLO view(s) were taken. Prior study comparison: October 18, 2020, right breast MG work up mamm w CAD RT. October 14, 2020, bilateral MG screening mammo w CAD. The breast tissue is heterogeneously dense. This may lower the sensitivity of mammography. Stable benign calcifications. There is no discrete abnormality. No significant changes when compared with prior studies. ASSESSMENT: Benign, BI-RAD 2 RECOMMENDATION: Routine screening mammogram of both breasts in 1 year.
== END | disposition home or self-care (01) ==
LOC: RADMAMWWP 10:08
PROVIDERS: ATTEND Family Medicine
DX: Z12.31 Encounter for screening mammogram for malignant neoplasm of breast (principal); Z78.0 Asymptomatic menopausal state
CPT/HCPCS: 77067

== ENCOUNTER → 2021-11-07 | Outpatient (CLI) | payer OTHER ==
[2021-11-07 10:30] VITALS: BP 145/87; PULSE 57; RESP 16; TEMP 97.9
--- NOTE | 2021-11-07 11:18 | P.HPOB ---
History of Present Illness H&P Date: 11/07/21 Chief Complaint: The patient is here for her routine gynecologic exam and ma mmogram. This is a 56-year-old with an LMP of 2011. The patient is here to establish with this office. It has been about 2 years since her last pelvic exam. She is without gynecologic complaints and denies any postmenopausal bleeding. Review of Systems The patient's weight has been stable over the last year. She denies respiratory, cardiac, or G.I. problems. Past Medical History Past Medical History: GERD/Reflux, Hyperlipidemia, Osteoarthritis (OA), Rheumatoid Arthritis (RA) Additional Past Medical History / Comment(s): Kidney stones. Past CONTACT AGENT history: Genital warts in the past. No other STDs. History of Any Multi-Drug Resistant Organisms: None Reported Past Surgical History: Joint Replacement, Orthopedic Surgery, Tonsillectomy, Tubal Ligation Additional Past Surgical History / Comment(s): left foot bunion/hammertoe. Left hip replacement. Past Anesthesia/Blood Transfusion Reactions: No Reported Reaction Past Psychological History: Depression (No current depression on medication.) Smoking Status: Never smoker Past Alcohol Use History: Rare (2 per year) Past Drug Use History: None Reported Additional History: She has been with her partner for 16 years and they live together. They are sexually active. She cares for an elderly patient. - Past Family History Mother Family Medical History: Cancer, Deep Vein Thrombosis (DVT) Additional Family Medical History / Comment(s): Uterine cancer. Maternal uncle had leukemia. Father Additional Family Medical History / Comment(s): . Alcoholic. Medications and Allergies Home Medications Medication Instructions Recorded Confirmed Type Atorvastatin [Lipitor] 20 mg PO DAILY 06/03/19 11/07/21 History Calcium Carbonate/Vitamin D3 1 each PO DAILY 06/03/19 11/07/21 History [Calcium 500-Vit D3 200 Tablet] Diclofenac Sodium [Voltaren] 75 mg PO BID 06/03/19 11/07/21 History FLUoxetine HCL [PROzac] 40 mg PO HS 06/03/19 11/07/21 History Folic Acid 1 tab PO DAILY 06/03/19 11/07/21 History Glucos Sul 2Kcl/MSM/Chond/C/Mn 1 each PO DAILY 06/03/19 11/07/21 History [Glucosamine Chondroitin Cap] Hydroxychloroquine Sulfate 200 mg PO BID 06/03/19 11/07/21 History [Plaquenil] Multivitamins, Thera [Multivitamin 1 tab PO DAILY 06/03/19 11/07/21 History (formulary)] Omeprazole [PriLOSEC] 20 mg PO DAILY 06/03/19 11/07/21 History Infliximab-Dyyb [Inflectra] 400 mg IV QMONTHLY 11/07/21 11/07/21 History Allergies Allergy/AdvReac Type Severity Reaction Status Date / Time sulfamethoxazole Allergy Unknown Verified 11/07/21 10:17 [From Bactrim] trimethoprim [From Bactrim] Allergy Unknown Verified 11/07/21 10:17 Exam Vital Signs Temp Pulse Resp BP Pulse Ox 11/07/21 10:26 97.9 F 57 L 16 145/87 99 Intake and Output 11/06/21 11/07/21 11/07/21 22:59 06:59 14:59 Other: Weight 83.915 kg Height 5 feet 2 inches, weight 185 pounds, BMI 33.8. This is a well-developed well-nourished white female who is alert and oriented times 3 in no acute distress. HEENT: Within normal limits. NECK: Supple without mass or thyromegaly. CHEST AND LUNGS: Clear to auscultation. HEART: Regular rate and rhythm. BREASTS: Are without mass or discharge. AXILLARY EXAM: Negative for adenopathy. BACK: Negative for CVA tenderness. ABDOMEN: Soft, nontender, without palpable masses. PELVIC EXAM: External genitalia reveals a benign-appearing right labia majora inclusion cyst measuring approximately 1 x 0.8 cm. She states she has had the inclusion cyst there for many years and this causes no pain or problems. This is slightly firm and nontender. It is smooth without erythema. Cervix and vagina appear normal with mild atrophy. There is no unusual discharge. There is no evidence of prolapse. The uterus is midposition, nongravid size and nontender. There are no palpable adnexal masses or tenderness. RECTAL EXAM: Rectovaginal exam is negative for mass or tenderness and is negative for occult blood. EXTREMITIES: Nontender. IMPRESSION: 1. 56-year-old menopausal female with benign appearing right labial inclusion cyst. Otherwise unremarkable gynecologic exam. 2. History of osteopenia. PLAN: 1. Pap smear cotest was performed. 2. Self breast awareness was discussed with the patient. We have also discussed symptoms associated with inflammatory breast cancer. 3. Screening mammogram will be done today. 4. Osteoporosis prevention was discussed. I have stressed the importance of adequate calcium, vitamin D and regular exercise. Recommended amounts of calcium and vitamin D were also discussed. She had a bone density test done on 10/14/2020 showing osteopenia. We will plan on repeating this in approximately 1 year. 5. I have recommended screening colonoscopy since she has never had this done. She will discuss this with Dr. Lawson, her PCP. 6. She has not received a Covid vaccination, but has had Covid in the past. She understands the CDC recommends Covid vaccination. She will consider this. 7. She was advised to return in one year for her annual well woman exam.
== END ==
LOC: WWCWWP 10:09
PROVIDERS: ATTEND Obstetrics & Gynecology
DX: Z01.419 Encounter for gynecological examination (general) (routine) without abnormal findings (principal); Z12.39 Encounter for other screening for malignant neoplasm of breast; L72.0 Epidermal cyst; E78.5 Hyperlipidemia, unspecified; Z87.39 Personal history of other diseases of the musculoskeletal system and connective tissue; M06.9 Rheumatoid arthritis, unspecified; M19.90 Unspecified osteoarthritis, unspecified site; F32.A Depression, unspecified; K21.9 Gastro-esophageal reflux disease without esophagitis; Z88.2 Allergy status to sulfonamides

== ENCOUNTER 2022-02-15 08:11 | Day surgery (SDC) | payer OTHER ==
[2022-02-14 09:53] VITALS: BMI 35.6
[~2022-02-15 08:11] MED LIST changes: -ACETAMINOPHEN TAB 500 MG TAB PO ONE; -GABAPENTIN 300 MG CAP PO ONE; +LACTATED RINGERS 1,000 ML IV SCH; +LIDOCAINE 1% (10MG/ML) FOR IV START INTRADERMA PRN; -MELOXICAM 7.5 MG TAB PO ONE; +ONDANSETRON 4 MG/2 ML VIAL IVP PRN; -TRANEXAMIC ACID 1,000 MG in SODIUM CHLORIDE 0.9% 100 ML IVPB ONE
[2022-02-15 09:05] VITALS: TEMP 97
[2022-02-15] MEDS ORDERED: PROPOFOL 10 MG/ML 20 ML VIAL IV ONE (09:28)
[2022-02-15] MEDS ORDERED: LIDOCAINE 2% INJ 20 MG/ML (2 ML VIAL) ONE (09:28)
--- NOTE | 2022-02-15 09:31 | P.GSHP ---
History of Present Illness H&P Date: 02/15/22 Chief Complaint: Peptic ulcer disease, screening colonoscopy This a 56-year-old female with history of peptic ulcer disease. She presents safer EGD and screening colonoscopy. Past Medical History Past Medical History: GERD/Reflux, Hyperlipidemia, Osteoarthritis (OA), Rheumatoid Arthritis (RA) Additional Past Medical History / Comment(s): Hx kidney stones. History of Any Multi-Drug Resistant Organisms: None Reported Past Surgical History: Joint Replacement, Orthopedic Surgery, Tonsillectomy, Tubal Ligation Additional Past Surgical History / Comment(s): left foot bunion/hammertoe surgery. Left hip replacement. Past Anesthesia/Blood Transfusion Reactions: No Reported Reaction Past Psychological History: Depression Smoking Status: Never smoker Past Alcohol Use History: Rare Past Drug Use History: None Reported - Past Family History Mother Family Medical History: Cancer, Deep Vein Thrombosis (DVT) Additional Family Medical History / Comment(s): Uterine cancer. Maternal uncle had leukemia. Father Additional Family Medical History / Comment(s): . Alcoholic. Medications and Allergies Home Medications Medication Instructions Recorded Confirmed Type Atorvastatin [Lipitor] 20 mg PO DAILY 06/03/19 02/15/22 History Calcium Carbonate/Vitamin D3 1 each PO DAILY 06/03/19 02/15/22 History [Calcium 500-Vit D3 200 Tablet] Diclofenac Sodium [Voltaren] 75 mg PO BID 06/03/19 02/15/22 History FLUoxetine HCL [PROzac] 40 mg PO HS 06/03/19 02/15/22 History Glucos Sul 2Kcl/MSM/Chond/C/Mn 1 each PO DAILY 06/03/19 02/15/22 History [Glucosamine Chondroitin Cap] Hydroxychloroquine Sulfate 200 mg PO BID 06/03/19 02/15/22 History [Plaquenil] Multivitamins, Thera [Multivitamin 1 tab PO DAILY 06/03/19 02/15/22 History (formulary)] Omeprazole [PriLOSEC] 20 mg PO HS 06/03/19 02/15/22 History Infliximab-Dyyb [Inflectra] 400 mg IV QMONTHLY 11/07/21 02/15/22 History Allergies Allergy/AdvReac Type Severity Reaction Status Date / Time sulfamethoxazole Allergy Unknown Verified 02/15/22 08:54 [From Bactrim] trimethoprim [From Bactrim] Allergy Unknown Verified 02/15/22 08:54 Surgical - Exam Vital Signs Temp Pulse Resp BP Pulse Ox 97.0 F L 64 15 120/76 98 02/15/22 09:01 02/15/22 09:01 02/15/22 09:01 02/15/22 09:01 02/15/22 09:01 - General well developed, well nourished, no distress - Eyes PERRL - ENT normal pinna, normal nares - Neck no masses - Respiratory normal expansion - Cardiovascular Rhythm: regular - Abdomen Abdomen: soft, non tender Assessment and Plan Assessment: Abdominal series. We'll perform EGD and screening colonoscopy.
--- NOTE | 2022-02-15 09:55 | P.OP ---
Date of Procedure: 02/15/22 Preoperative Diagnosis: GERD Screening colonoscopy Postoperative Diagnosis: Antral gastritis Hiatal hernia Mild esophagitis Procedure(s) Performed: EGD Colonoscopy Anesthesia: MAC Surgeon: Oli Chavez Pathology: other (Antrum, esophagus) Condition: stable Disposition: PACU Description of Procedure: The patient's placed on the endoscopy table in the lateral position. She received IV sedation. The gastroscope placed oropharynx passed in the esophagus into the stomach. The scope was placed through the pylorus. The first and second portion of the duodenum appeared normal. Scope summer back the antrum and this appeared mildly inflamed. The remainder the stomach was normal. Scope was then retroflexed and there was a moderate size hiatal hernia. The GE junction was at 38 cm per the distal esophagus appeared minimally inflamed a biopsies performed. The proximal esophagus appeared normal. Scope withdrawn for patient. Next digital rectal exam was performed this revealed no ebonized. Flexible scope was then placed patient anus and passed into the sigmoid colon there is diverticular changes. The; very tortuous. The scope advanced. The scope was withdrawn. Next the pediatric scope was placed patient anus and passed throughout the colon.[id number] the scope. Passed into the left colon secondary to tortuosity of the colon. At this point decided to withdraw the colonoscope. The visualized colon appeared normal. Except for a few diverticula. The patient was then scheduled for a barium enema.
[2022-02-15 10:09] VITALS: RESP 16
[2022-02-15 10:34] VITALS: BP 121/72; PULSE 64
--- NOTE | 2022-02-15 14:12 | FL ---
EXAMINATION TYPE: FL barium enema w air contrast DATE OF EXAM: 02/15/2022 COMPARISON: NONE HISTORY: Incomplete colonoscopy TECHNIQUE: A double contrast barium enema study is performed. A total of 1 minute 57 seconds of flu oroscopic time was utilized during procedure and 32 images obtained. FINDINGS: Chaplain view of the abdomen shows overall non-obstructive bowel gas pattern. There is mild d isc degeneration changes throughout the spine. Left hip arthroplasty is present and in appropriate position. No evidence of any mass or polyp, obstructing or constricting lesion throughout the colon. No signif icant diverticular disease is noted. Redundant sigmoid and splenic: Are noted. Appendix was filled and appeared normal. IMPRESSION: Free transit of contrast to the cecum without evidence of filling defect or abnormality. Slightly limited evaluation of the sigmoid colon and splenic flexure secondary to redundant colon.
== END 2022-02-15 10:39 | disposition home or self-care (01) ==
LOC: ORWHC2ENDO 08:11
PROVIDERS: ATTEND Surgery
DX: Z12.11 Encounter for screening for malignant neoplasm of colon (principal); K57.30 Diverticulosis of large intestine without perforation or abscess without bleeding; Q43.8 Other specified congenital malformations of intestine; K29.50 Unspecified chronic gastritis without bleeding; K44.9 Diaphragmatic hernia without obstruction or gangrene; K31.A0 Gastric intestinal metaplasia, unspecified; K21.00 Gastro-esophageal reflux disease with esophagitis, without bleeding; E78.5 Hyperlipidemia, unspecified; M19.90 Unspecified osteoarthritis, unspecified site; M06.9 Rheumatoid arthritis, unspecified; Z87.442 Personal history of urinary calculi; Z96.642 Presence of left artificial hip joint; Z98.51 Tubal ligation status; Z98.890 Other specified postprocedural states; F32.A Depression, unspecified; Z82.49 Family history of ischemic heart disease and other diseases of the circulatory system; Z80.49 Family history of malignant neoplasm of other genital organs; Z80.6 Family history of leukemia; Z81.1 Family history of alcohol abuse and dependence; Z79.899 Other long term (current) drug therapy; Z88.2 Allergy status to sulfonamides
CPT/HCPCS: 88305; 74280; 43239; 45330; J2704; J2001

== ENCOUNTER 2022-03-06 09:01 | Observation (INO) | payer OTHER ==
[2022-03-05 09:15] VITALS: BMI 33.6
[~2022-03-06 09:01] MED LIST changes: +ACETAMINOPHEN TAB 500 MG TAB PO PRN; +DEXAMETHASONE SOD PHOSPHATE 4 MG/ML 1 ML VIAL IV ONE; +HEPARIN SODIUM,PORCINE/PF 5,000 UNIT/0.5 ML SYRINGE SQ PRN; -LACTATED RINGERS 1,000 ML IV SCH; -LIDOCAINE 1% (10MG/ML) FOR IV START INTRADERMA PRN; +MIDAZOLAM 2 MG/2 ML VIAL IV PRN; +ONDANSETRON 4 MG/2 ML VIAL IVP ONE; -ONDANSETRON 4 MG/2 ML VIAL IVP PRN; +SCOPOLAMINE 1 MG/72 HR PATCH TRANSDERM ONE
[2022-03-06] MEDS: LACTATED RINGERS 1,000 ML IV SCH (09:50)
[2022-03-06] MEDS ORDERED: LIDOCAINE 1% (10MG/ML) FOR IV START INTRADERMA ONE (09:53)
--- NOTE | 2022-03-06 10:32 | P.GSHP ---
History of Present Illness H&P Date: 03/06/22 Chief Complaint: GERD This is a 56-year-old female referred from Dr. umaña.The patient has had long-standing problems with reflux esophagitis. The patient underwent recent EGD is found have evidence of esophagitis. Patient has been well informed on th e procedure of laparoscopic Katheryn fundoplication. The patient is aware the risk of the conversion to the open procedure, risk of injury to the stomach, liver and spleen. The patient is also a risk of recurrent GERD and dysphagia symptoms. The patient understands there is a postoperative diet of full liquids for 2 weeks after surgery. Past Medical History Past Medical History: GERD/Reflux, Hyperlipidemia, Osteoarthritis (OA), Rheumatoid Arthritis (RA) Additional Past Medical History / Comment(s): Hx kidney stones. History of Any Multi-Drug Resistant Organisms: None Reported Past Surgical History: Joint Replacement, Orthopedic Surgery, Tonsillectomy, Tubal Ligation Additional Past Surgical History / Comment(s): left foot bunion/hammertoe surgery. Left hip replacement. Past Anesthesia/Blood Transfusion Reactions: No Reported Reaction Past Psychological History: Depression Smoking Status: Never smoker Past Alcohol Use History: Rare Past Drug Use History: None Reported - Past Family History Mother Family Medical History: Cancer, Deep Vein Thrombosis (DVT) Additional Family Medical History / Comment(s): Uterine cancer. Maternal uncle had leukemia. Father Additional Family Medical History / Comment(s): . Alcoholic. Medications and Allergies Home Medications Medication Instructions Recorded Confirmed Type Atorvastatin [Lipitor] 20 mg PO DAILY 06/03/19 03/06/22 History Calcium Carbonate/Vitamin D3 1 each PO DAILY 06/03/19 03/06/22 History [Calcium 500-Vit D3 200 Tablet] Diclofenac Sodium [Voltaren] 75 mg PO BID 06/03/19 03/06/22 History FLUoxetine HCL [PROzac] 40 mg PO HS 06/03/19 03/06/22 History Glucos Sul 2Kcl/MSM/Chond/C/Mn 1 each PO DAILY 06/03/19 03/06/22 History [Glucosamine Chondroitin Cap] Hydroxychloroquine Sulfate 200 mg PO BID 06/03/19 03/06/22 History [Plaquenil] Multivitamins, Thera [Multivitamin 1 tab PO DAILY 06/03/19 03/06/22 History (formulary)] Omeprazole [PriLOSEC] 20 mg PO HS 06/03/19 03/06/22 History Infliximab-Dyyb [Inflectra] 400 mg IV Q60D 11/07/21 03/06/22 History Allergies Allergy/AdvReac Type Severity Reaction Status Date / Time sulfamethoxazole Allergy Unknown Verified 03/06/22 09:17 [From Bactrim] trimethoprim [From Bactrim] Allergy Unknown Verified 03/06/22 09:17 Surgical - Exam Vital Signs Temp Pulse Resp BP Pulse Ox 97.3 F L 59 L 16 133/73 97 03/06/22 09:26 03/06/22 09:26 03/06/22 09:26 03/06/22 09:26 03/06/22 09:26 - General well developed, well nourished, no distress - Eyes PERRL - ENT normal pinna - Neck no masses - Respiratory normal expansion - Cardiovascular Rhythm: regular - Abdomen Abdomen: soft, non tender Assessment and Plan Assessment: GERD. We'll perform laparoscopic Katheryn fundal plication.
[2022-03-06] MEDS ORDERED: KETOROLAC 15 MG/ML 1 ML VIAL ONE (10:55)
[2022-03-06] MEDS ORDERED: KETAMINE 10 MG/ML 20 ML VIAL ONE (10:55)
[2022-03-06] MEDS ORDERED: fentaNYL (PF) 50 MCG/ML 2 ML AMP ONE (10:55)
[2022-03-06] MEDS ORDERED: SUCCINYLCHOLINE CHLORIDE 200 MG/10 ML VIAL IV ONE (10:55)
[2022-03-06] MEDS ORDERED: ROCURONIUM 10 MG/ML (5 ML VIAL) IV ONE (10:55)
[2022-03-06] MEDS ORDERED: GLYCOPYRROLATE 0.2 MG/ML 2 ML VIAL ONE (10:55)
[2022-03-06] MEDS ORDERED: PROPOFOL 10 MG/ML 20 ML VIAL IV ONE (10:55)
[2022-03-06] MEDS ORDERED: NEOSTIGMINE 1 MG/ML 10 ML VIAL ONE (10:55)
[2022-03-06] MEDS ORDERED: ePHEDrine 50 MG/ML 1 ML VIAL ONE (10:55)
[2022-03-06] MEDS ORDERED: LIDOCAINE 2% INJ 20 MG/ML (2 ML VIAL) ONE (10:55)
[2022-03-06] MEDS ORDERED: HYDROmorphone (PF) 1 MG/ML ONE (10:55)
[2022-03-06] MEDS ORDERED: MIDAZOLAM 2 MG/2 ML VIAL ONE (10:55)
[2022-03-06] MEDS ORDERED: BUPIVACAIN-EPI 0.25%-1:200,000 30 ML VIAL SQ ONE ×2 (11:15→11:22)
--- NOTE | 2022-03-06 11:43 | P.OP ---
Date of Procedure: 03/06/22 Preoperative Diagnosis: GERD Postoperative Diagnosis: GERD Procedure(s) Performed: Laparoscopic Katheryn fundoplication Anesthesia: ANIVAL Surgeon: Oli Chavez Estimated Blood Loss (ml): 5 Pathology: none sent Condition: stable Disposition: PACU Description of Procedure: The patient was placed on the operating table in the supine position. The patient received general anesthesia. And was placed in dorsal lithotomy position. The patient was prepped and draped in the usual sterile fashion. The skin incision sites were anesthetized with 1% local Xylocaine. The skin was incised in the left periumbilical area and then using a blade less 5 mm trocar under direct visualization panel cavity was entered. After adequate insufflation the laparoscope was then placed into the peritoneal cavity. Next a 5 mm trochars placed in the right epigastric position. Another 5 millimeter trocar the right lateral position. Another 5 millimeter trocar in the left lateral position a 5 mm trocar is placed in the left epigastric position. And then the initial 5 mm trocar was exchanged for a 10 mm trocar. The left lateral lobe liver was retracted. The hernia was seen. The crural defect was then dissected using the Harmonic scissors device. A 360 crural dissection was per formed the esophagus stomach was reduced back into the peritoneal Cavity. The crural defect was then closed using 2-0 Ethibond suture. Next the fundus of the stomach was mobilized using the Auxier scissors device. and then a 58-Angolan bougie dilator was placed oropharynx passed into the esophagus and stomach the fundal plication wrap was then performed by grasping the fundus posteriorly and bringing it around the esophagus and stomach fundoplication was then performed using 2-0 Ethibond suture. Care was taken that the fundal location rested over top of the intra-abdominal esophagus. There was no injury seen to the stomach or esophagus. The dilator was then withdrawn. The abdomen was irrigated there is no bleeding seen. The trochars were then withdrawn and then skin incision sites were closed using 3-0 Monocryl suture Steri-Strips are applied. Patient thought procedure well and sent to recovery room in stable condition.
[2022-03-06] MEDS ORDERED: ONDANSETRON 4 MG/2 ML VIAL IVP PRN (11:44)
[2022-03-06] MEDS: HYDROmorphone 0.5 MG/0.5 ML SYRINGE IVP PRN ×2 (12:15→21:08)
[2022-03-06] MEDS ORDERED: LACTATED RINGERS 1,000 ML IV ONE (13:10)
[2022-03-06] MEDS ORDERED: FLUoxetine HCL 20 MG CAP PO SCH (21:00)
[2022-03-06] MEDS: HYDROXYCHLOROQUINE SULFATE 200 MG TAB PO SCH (21:02)
--- NOTE | 2022-03-07 01:53 | CONS ---
CONSULTATION REASON FOR CONSULTATION: GERD and other medical issues, requested by Dr. Chavez. HISTORY OF PRESENT ILLNESS: This is a 56-year-old woman with a past history of GERD and multiple other medical issues, underwent laparoscopic Katheryn fundoplication. The patient tolerated the procedure well. There is no history of any fever, rigors, or chills at this time. PAST MEDICAL HISTORY: Reviewed, include GERD and hyperlipidemia. HOME MEDICATIONS: Also reviewed, include Prilosec. Dose and rest of medication noted. ALLERGIES: Reviewed, include Bactrim. FAMILY HISTORY: No history of heart disease. Otherwise, history of cancer, uterine cancer, DVT. SOCIAL HISTORY: No history of smoking. REVIEW OF SYSTEMS: A 14-point review of systems negative as mentioned earlier. PHYSICAL EXAMINATION: VITAL SIGNS: Pulse 70, blood pressure 120/60, respirations 16. HEENT: Conjunctivae normal. NECK: No JVD. CARDIOVASCULAR: S1, S2 muffled. RESPIRATION: Breath sounds diminished at the bases. No rhonchi. ABDOMEN: Soft, status post surgery. LEGS: No edema. NERVOUS SYSTEM: No focal deficits. SKIN: No ulcer, rash, or bleeding. LABORATORY DATA: Not available. ASSESSMENT: 1. Status post Katheryn fundoplication. 2. Gastroesophageal reflux disease. 3. Hyperlipidemia. 4. Multiple medical issues. RECOMMENDATIONS: This 56-year-old woman, presented after surgery. At this time, I recommend to continue current medications, symptomatic treatment. Otherwise, resume the home medications. Closely follow with Orthopedic Surgery. DVT prophylaxis. Incentive spirometry. We will follow the patient closely. The patient may be asked to follow up with primary physician closely after discharge. Thank you Dr. Chavez. MMAMADOL / IJN: [id number] /
[2022-03-07] MEDS ORDERED: HYDROmorphone 0.5 MG/0.5 ML SYRINGE IVP STA (04:08)
[2022-03-07] MEDS ORDERED: HYDROmorphone 1 MG/ML 1 ML SYRINGE IVP PRN (07:32)
[2022-03-07 08:32] VITALS: BP 118/71; PULSE 64; RESP 16; TEMP 98
[2022-03-07] MEDS: PANTOPRAZOLE 40 MG/10 ML VIAL IVP SCH ×2 (08:59→09:00)
[2022-03-07] MEDS: HYDROXYCHLOROQUINE SULFATE 200 MG TAB PO SCH (09:00)
[2022-03-07] MEDS ORDERED: ATORVASTATIN 20 MG TAB PO SCH (09:00)
[2022-03-07] MEDS ORDERED: ENOXAPARIN 30 MG/0.3 ML SYRINGE SQ SCH (09:00)
[2022-03-07] MEDS: D5-0.45% NACL WITH KCL 20MEQ/L 1,000 ML IV SCH ×3 (09:15→14:47)
[2022-03-07] MEDS: LACTATED RINGERS 1,000 ML IV SCH (09:16)
--- NOTE | 2022-03-07 12:19 | P.DS ---
Providers Date of admission: 03/07/22 06:26 Expected date of discharge: 03/07/22 Attending physician: Oli Chavez Consults: 03/06/22 11:44 Consult Physician Routine Consulting Provider: Triston Morales Reason/Comments: Medical management Do you want consulting provider notified?: Yes Primary care physician: [facility] Course: Is a [age] female who underwent laparoscopic Katheryn fundal plication. Patient's postoperative stay was unremarkable. Please see chart for details. Procedures: Laparoscopic Katheryn fundal plication Patient Condition at Discharge: Good Plan - Discharge Summary Discharge Rx Participant: Yes New Discharge Prescriptions: New Ibuprofen [Motrin] 600 mg PO Q6HR PRN #40 tab PRN Reason: Pain Acetaminophen Tab [Tylenol] 650 mg PO Q6H #30 tab No Action Multivitamins, Thera [Multivitamin (formulary)] 1 tab PO DAILY FLUoxetine HCL [PROzac] 40 mg PO HS Atorvastatin [Lipitor] 20 mg PO DAILY Diclofenac Sodium [Voltaren] 75 mg PO BID Omeprazole [PriLOSEC] 20 mg PO HS Hydroxychloroquine Sulfate [Plaquenil] 200 mg PO BID Glucos Sul 2Kcl/MSM/Chond/C/Mn [Glucosamine Chondroitin Cap] 1 each PO DAILY Calcium Carbonate/Vitamin D3 [Calcium 500-Vit D3 200 Tablet] 1 each PO DAILY Infliximab-Dyyb [Inflectra] 400 mg IV Q60D Discharge Medication List Atorvastatin [Lipitor] 20 mg PO DAILY 06/03/19 [History] Calcium Carbonate/Vitamin D3 [Calcium 500-Vit D3 200 Tablet] 1 each PO DAILY 06/03/19 [History] Diclofenac Sodium [Voltaren] 75 mg PO BID 06/03/19 [History] FLUoxetine HCL [PROzac] 40 mg PO HS 06/03/19 [History] Glucos Sul 2Kcl/MSM/Chond/C/Mn [Glucosamine Chondroitin Cap] 1 each PO DAILY 06/03/19 [History] Hydroxychloroquine Sulfate [Plaquenil] 200 mg PO BID 06/03/19 [History] Multivitamins, Thera [Multivitamin (formulary)] 1 tab PO DAILY 06/03/19 [History] Omeprazole [PriLOSEC] 20 mg PO HS 06/03/19 [History] Infliximab-Dyyb [Inflectra] 400 mg IV Q60D 11/07/21 [History] Acetaminophen Tab [Tylenol] 650 mg PO Q6H #30 tab 03/07/22 [Rx] Ibuprofen [Motrin] 600 mg PO Q6HR PRN #40 tab 03/07/22 [Rx] Follow up Appointment(s)/Referral(s): Oli Chavez MD [STAFF PHYSICIAN] - 1 Week Discharge Disposition: HOME SELF-CARE
--- NOTE | 2022-03-07 14:16 | P.PN ---
Subjective Progress Note Date: 03/07/22 This is a pleasant 56-year-old female who was admitted under surgery services for laparoscopic Stewart fundoplication and is being closely monitored. Patient does have a past medical history of gastroesophageal reflux disease and other medical issues with consultation for medical management as patient follows with in the outpatient setting. Patient reports to feeling well today and is scheduled for discharge and is maintained on strict diet per surgery services and recommend continue further recommendations with close outpatient follow-up. Recommend incentive spirometer and will encourage to use at least 10 times every hour while awake. Recommend to resume home medications with close outpatient follow-up with Dr. Lawson on discharge. Patient denies any chest pain or shortness of breath. Patient is afebrile and denies any nausea or vomiting. Patient reports the passing gas and continues with some mild abdominal discomfort. Review of systems: Constitutional: No reports of fatigue, fever, or chills Cardiovascular: No reports of chest pain or palpitations Respiratory: No reports of shortness of breath or cough GI: No reports of nausea, no reports of of vomiting, reports passing gas, reports some abdominal discomfort : No reports of dysuria or retention Neurovascular: No reports of generalized weakness All medications have been reviewed Active Medications Atorvastatin Calcium (Atorvastatin 20 Mg Tab) 20 mg PO DAILY [facility] Last Admin: 03/07/22 09:01 Dose: 20 mg Enoxaparin Sodium (Enoxaparin 30 Mg/0.3 Ml Syringe) 30 mg SQ DAILY [facility] Stop: 04/06/22 09:01 Last Admin: 03/07/22 09:01 Dose: 30 mg Fluoxetine HCl (Fluoxetine Hcl 20 Mg Cap) 40 mg PO HS [facility] Last Admin: 03/06/22 21:00 Dose: 40 mg Hydromorphone HCl (Hydromorphone 1 Mg/Ml 1 Ml Syringe) 1 mg IVP Q6HR PRN PRN Reason: Pain Hydroxychloroquine Sulfate (Hydroxychloroquine Sulfate 200 Mg Tab) 200 mg PO BID [facility] Stop: 03/10/22 09:01 Last Admin: 03/07/22 09:00 Dose: 200 mg Lactated Ringer's (Lactated Ringers) 1,000 mls @ 20 mls/hr IV .Q24H [facility] Stop: 04/05/22 05:44 Last Admin: 03/07/22 09:16 Dose: Not Given Potassium Chloride/Dextrose/Sod Cl (D5%-1/2ns-Kcl 20 Meq/L Iv Solution) 1,000 mls @ 125 mls/hr IV .Q8H [facility] Stop: 04/05/22 14:01 Last Admin: 03/07/22 09:16 Dose: Not Given Ondansetron HCl (Ondansetron 4 Mg/2 Ml Vial) 4 mg IVP Q6HR PRN PRN Reason: Nausea And Vomiting Stop: 04/05/22 11:45 Pantoprazole Sodium (Pantoprazole 40 Mg/10 Ml Vial) 40 mg IVP DAILY [facility] Last Admin: 03/07/22 09:00 Dose: 40 mg PHYSICAL EXAMINATION: GENERAL: The patient is alert and oriented x4, Well developed, well nourished. HEENT: Pupils are round and equally reacting to light. EOMI. no scleral icterus. No conjunctival pallor. Normocephalic, atraumatic. No pharyngeal erythema. No thyromegaly. CARDIOVASCULAR: S1 and S2 muffled PULMONARY: diminished breath sounds bilaterally with no wheezing or rhonchi noted. ABDOMEN: soft. mildly tender on exam. obese. non-distended, normoactive bowel sounds. No palpable organomegaly. MUSCULOSKELETAL: No joint swelling or deformity. EXTREMITIES: No cyanosis, clubbing, or pedal edema. NEUROLOGICAL: Gross neurological examination did not reveal any focal deficits. SKIN: No rashes. Assessment: GI prophylaxis DVT prophylaxis Full code Plan: Recommend to continue with current medications and management per general surgery services as patient is postop laparoscopic Stewart fundoplication Recommend continue current diet recommendations per surgery with close outpatient follow-up Appropriate home medications have been resumed and encouraged patient to follow- up with primary care provider Dr. Lawson on discharge Encouraged incentive spirometer use at least 10 times every hour while awake Encouraged increased activity as tolerated Patient reports she is being discharged today and recommend follow-up with surgery as scheduled We will continue to follow with surgery during hospitalization. Thank you kindly for this consultation. The impression and plan of care has been dictated by Lenore Andres, nurse practitioner as directed. Dr. Arthur MD I have performed a history and examination and MDM of this patient, discussed the same with the dictator, and agree with the dictator's assessment and plan as written ,documented as a scribe. Based on total visit time, I have performed more than 50% of the visit. Any additional findings or plans will be noted. Objective - Vital Signs Vital signs: Vital Signs Temp 98.0 F 03/07/22 07:30 Pulse 64 03/07/22 07:30 Resp 16 03/07/22 07:30 BP 118/71 03/07/22 07:30 Pulse Ox 96 03/07/22 07:30 FiO2 Intake & Output 03/06/22 03/07/22 03/07/22 18:59 06:59 18:59 Intake Total 1050 Output Total 105 800 Balance 945 -800 Weight 86.2 kg 86.2 kg Intake: IV 1050 Output: Urine 100 800 Estimated Blood Loss 5 Other: # Voids 1 1
== END 2022-03-07 14:40 | disposition home or self-care (01) ==
LOC: OR 09:01 → 4FBP 11:49 → OR 03-07 06:26
PROVIDERS: ADMIT Surgery; ATTEND Surgery
DX: K21.01 Gastro-esophageal reflux disease with esophagitis, with bleeding (principal); E78.5 Hyperlipidemia, unspecified; M19.90 Unspecified osteoarthritis, unspecified site; F32.A Depression, unspecified; M06.9 Rheumatoid arthritis, unspecified; Z87.442 Personal history of urinary calculi; Z96.642 Presence of left artificial hip joint; Z98.890 Other specified postprocedural states; Z97.2 Presence of dental prosthetic device (complete) (partial); Z82.49 Family history of ischemic heart disease and other diseases of the circulatory system; Z98.51 Tubal ligation status; Z80.49 Family history of malignant neoplasm of other genital organs; Z80.6 Family history of leukemia; Z81.1 Family history of alcohol abuse and dependence; Z79.899 Other long term (current) drug therapy; Z88.2 Allergy status to sulfonamides
CPT/HCPCS: 43280; G0378; J2250; J0330; J1100; J2710; J0690; J2405; J3010; J1650; J1170 ×3; J1885; J2704; C9113; J1644; J2001

== ENCOUNTER → 2022-03-28 | Outpatient (CLI) | payer OTHER ==
--- NOTE | 2022-03-28 12:40 | XR ---
EXAMINATION TYPE: XR KUB DATE OF EXAM: 03/28/2022 COMPARISON: NONE HISTORY: Pain TECHNIQUE: Single supine KUB image of the abdomen is obtained FINDINGS: Small bowel demonstrates no evidence for dilatation or air fluid levels. Gas and fecal material is seen in non-distended colon. No convincing evidence for pneumoperitoneum. No unusual calcifications. The lung bases are clear. The osseous structures are intact. IMPRESSION: 1. Overall nonobstructive bowel gas pattern.
[2022-03-28 18:22] LABS: Anion Gap 9.3 mmol/L (10.00-18.00); BUN/Creat Ratio 15.4 Ratio (12.00-20.00); Blood Urea Nitrogen 19.1 mg/dL (9.0-27.0); Calcium 9.2 mg/dL (8.7-10.3); Carbon Dioxide 25.6 mmol/L (20.0-27.5); Non-African American GFR(CKD) 49.2 (60.0-200.0); Potassium 4.5 mmol/L (3.5-5.5)
== END | disposition home or self-care (01) ==
LOC: LABWHC1 11:54
PROVIDERS: ATTEND Urology
DX: N20.0 Calculus of kidney (principal)
CPT/HCPCS: 36415; 74018; 80048

== ENCOUNTER → 2023-02-12 | Outpatient (CLI) | payer OTHER ==
[2023-02-12 12:59] VITALS: BP 106/66; PULSE 78; RESP 18; TEMP 97.9
--- NOTE | 2023-02-12 13:38 | P.HPOB ---
History of Present Illness H&P Date: 02/12/23 Chief Complaint: The patient is here for her routine gynecologic exam and ma mmogram. This is a 57-year-old with an LMP of 2011. The patient continues to have a cyst in the right labia. She states it really does not cause her any problems, but she thinks it may have gotten slightly larger. She states it has been there for many years. She is otherwise without gynecologic complaints. Review of Systems The patient's weight has been stable over the last year. She denies respiratory, cardiac, or G.I. problems. Past Medical History Past Medical History: GERD/Reflux, Hyperlipidemia, Osteoarthritis (OA), Rheumatoid Arthritis (RA) Additional Past Medical History / Comment(s): Hx kidney stones. History of Any Multi-Drug Resistant Organisms: None Reported Past Surgical History: Joint Replacement, Orthopedic Surgery, Tonsillectomy, Tubal Ligation Additional Past Surgical History / Comment(s): left foot bunion/hammertoe surgery. Left hip replacement. L/S Katheryn fundoplication 2021. Past Anesthesia/Blood Transfusion Reactions: No Reported Reaction Past Psychological History: Depression Smoking Status: Never smoker Past Alcohol Use History: Rare (To per year.) Past Drug Use History: None Reported Additional History: She has been with her partner for 16 years and they live together. They are sexually active. She cares for an elderly person. - Past Family History Mother Family Medical History: Cancer, Deep Vein Thrombosis (DVT) Additional Family Medical History / Comment(s): Uterine cancer. Maternal uncle had leukemia. Father Additional Family Medical History / Comment(s): . Alcoholic. Medications and Allergies Home Medications Medication Instructions Recorded Confirmed Type Atorvastatin [Lipitor] 20 mg PO DAILY 06/03/19 02/12/23 History Calcium Carbonate/Vitamin D3 1 each PO DAILY 06/03/19 02/12/23 History [Calcium 500-Vit D3 5 Mcg (200 Iu)] Diclofenac Sodium [Voltaren] 75 mg PO BID 06/03/19 02/12/23 History FLUoxetine HCL [PROzac] 40 mg PO HS 06/03/19 02/12/23 History Glucos Sul 2Kcl/MSM/Chond/C/Mn 1 each PO DAILY 06/03/19 02/12/23 History [Glucosamine Chondroitin Cap] Hydroxychloroquine Sulfate 200 mg PO BID 06/03/19 02/12/23 History [Plaquenil] Multivitamins, Thera [Multivitamin 1 tab PO DAILY 06/03/19 02/12/23 History (formulary)] Omeprazole [PriLOSEC] 20 mg PO HS 06/03/19 02/12/23 History Infliximab-Dyyb [Inflectra] 400 mg IV Q60D 11/07/21 02/12/23 History Acetaminophen Tab [Tylenol] 650 mg PO Q6H #30 tab 03/07/22 02/12/23 Rx Ibuprofen [Motrin] 600 mg PO Q6HR PRN #40 tab 03/07/22 02/12/23 Rx Potassium Citrate [Potassium 10 meq PO BID 02/12/23 02/12/23 History Citrate ER] Allergies Allergy/AdvReac Type Severity Reaction Status Date / Time sulfamethoxazole Allergy Unknown Verified 02/12/23 12:52 [From Bactrim] trimethoprim [From Bactrim] Allergy Unknown Verified 02/12/23 12:52 Exam Vital Signs Temp Pulse Resp BP Pulse Ox 02/12/23 12:56 97.9 F 78 18 106/66 98 Intake and Output 02/11/23 02/12/23 02/12/23 22:59 06:59 14:59 Other: Weight 83.461 kg Height 5 feet 2-1/2 inches, weight 184 pounds, BMI 33.1 This is a well-developed well-nourished white female who is alert and oriented times 3 in no acute distress. HEENT: Within normal limits. NECK: Supple without mass or thyromegaly. CHEST AND LUNGS: Clear to auscultation. HEART: Regular rate and rhythm. BREASTS: Are without mass or discharge. AXILLARY EXAM: Negative for adenopathy. BACK: Negative for CVA tenderness. ABDOMEN: Soft, nontender, without palpable masses. PELVIC EXAM: External genitalia reveals mild atrophy with a stable right posterior labial inclusion cyst measuring 10 x 8 mm. This has a benign appearance and is nontender. The patient states it is been there for many years and does not cause her any significant problems. Cervix and vagina appear normal mild atrophy. There is no unusual discharge. There is no evidence of prolapse. The uterus is midposition, nongravid size and nontender. There are no palpable adnexal masses or tenderness. RECTAL EXAM: Rectovaginal exam is negative for mass or tenderness and is negative for occult blood. EXTREMITIES: Nontender. IMPRESSION: 1. 57-year-old menopausal female with stable asymptomatic right labial inclusio n cyst measuring 10 x 8 mm. Otherwise unremarkable gynecologic exam. 2. History osteopenia. PLAN: 1. Pap smear was deferred since she had a negative Pap smear, test on 11/07/2021. 2. Self breast awareness was discussed with the patient. We have also discussed symptoms associated with inflammatory breast cancer. 3. Screening mammogram will be done today. 4. Osteoporosis prevention was discussed. I have stressed the importance of adequate calcium, vitamin D and regular exercise. Recommended amounts of calcium and vitamin D were also discussed. I recommended repeating her bone density test. We will ask to see if this can be done today. If not, she will be given the order slip for this and she will schedule this for the near future. 5. Colorectal cancer screening was discussed. She had a barium enema on 02/15/2022. She'll continue to do colorectal cancer screening through her PCP. 6. Right labial inclusion cyst will be followed conservatively. She was instructed to call for reevaluation if she is noticing significant changes. 7. She was advised to return in one year for her annual well woman exam.
--- NOTE | 2023-02-13 07:52 | MM ---
Reason for Exam: Screening (asymptomatic). Last mammogram was performed 1 year(s) and 3 month(s) ago. Patient History: Menarche at age 14. First Full-Term at age 19. Postmenopausal. Patient used Hormonal Contraceptives for 5 years. Risk Values: Nohemy 5 year model risk: 0.8%. NCI Lifetime model risk: 6.0%. Prior Study Comparison: 10/14/2020 Bilateral Screening Mammogram, [facility]. 10/18/2020 Right Diagnostic Mammogram, [facility]. 11/07/2021 Bilateral Screening Mammogram, [facility]. Tissue Density: The breast tissue is heterogeneously dense. This may lower the sensitivity of mammography. Findings: Analyzed By CAD. There is no suspicious group of microcalcifications or new suspicious mass in either breast. Overall Assessment: Benign, BI-RAD 2 Management: Screening Mammogram of both breasts in 1 year. . Patient should continue monthly self-breast exams. A clinical breast exam by your physician is recommended on an annual basis. This exam should not preclude additional follow-up of suspicious palpable abnormalities. Note on Noheym scores and lifetime risk: 1. A Nohemy score greater than 3% is considered moderate risk. If this is the case, consider specialist referral to assess eligibility for a risk reducing agent. 2. If overall lifetime risk for the development of breast cancer is 20% or higher, the patient may qualify for future screening with alternating mammogram and breast MRI. Electronically signed and approved by: Trae Cisneros M.D. Radiologis
== END ==
LOC: WWCWWP 12:33
PROVIDERS: ATTEND Obstetrics & Gynecology
DX: E78.5 Hyperlipidemia, unspecified (principal); K21.9 Gastro-esophageal reflux disease without esophagitis; M06.9 Rheumatoid arthritis, unspecified; M85.80 Other specified disorders of bone density and structure, unspecified site; Z12.11 Encounter for screening for malignant neoplasm of colon; Z12.31 Encounter for screening mammogram for malignant neoplasm of breast; Z78.0 Asymptomatic menopausal state; Z87.442 Personal history of urinary calculi; Z88.2 Allergy status to sulfonamides
CPT/HCPCS: 77063; 77067

== ENCOUNTER → 2023-02-14 | Outpatient (CLI) | payer OTHER ==
--- NOTE | 2023-02-14 11:15 | BD ---
EXAMINATION TYPE: Axial Bone Density DATE OF EXAM: 02/14/2023 CLINICAL HISTORY: 57 years old Female. ICD-10 CODE: Z78.0, Post menopausal without symptoms Height: 61.7 Weight: 181 FRAX RISK QUESTIONS: Family History (Parent hip fracture): yes History of Fracture in Adulthood: yes 3. Menopause before 45: at 47 Rheumatoid Arthritis: yes RISK FACTORS HISTORY OF: History of Wrist Fracture: yes, lt as an adult Surgery to Hip: left hip...2019 Family History of Osteoporosis: yes Diet low in dairy products/other sources of calcium: yes Postmenopausal woman: at 47 yrs. Hyperparathyroidism: no Adrenal Insufficiency: no MEDICATIONS: Additional Medications: inflect infusions every other month, statin for cholesterol, reflux meds, met hotrexate, calcium, vit d, Additional History: RA, reflux, cholesterol, EXAM MEASUREMENTS: Bone mineral densitometry was performed using the Yhat System. Bone mineral density as measured about the Lumbar spine is: ----- L1-L4(G/cm2): 1.071 T Score Values are as follows: ----- L1: -1.8 ----- L2: -2.7 ----- L3: -0.7 ----- L4: 1.7 ----- L1-L4: -0.9 Z Score Values are as follows: ----- L1: -1.5 ----- L2: -2.4 ----- L3: -0.4 ----- L4: 2.0 ----- L1-L4: -0.6 Bone mineral density has: Decreased -4.7% since study of: 10.14.2020 Bone mineral density about the R hip (g/cm2): 0.739 T Score values are as follows: -----R Neck: -1.6 -----R Total: -2.1 Z Score values are as follows: -----R Neck: -1.0 -----R Total: -1.9 Bone mineral density has: Decreased -1.5% since study of: 10.14.2020 FRAX%s: The graph provided illustrates a 28.4% chance for a major osteoporotic fx and a 1.6% chance f or the hips probability for fx in 10 years time. IMPRESSION: Osteopenia (T Score between -2.5 and -1). There is slightly increased risk of fracture and the patient may be considered for treatment. Re-Screen 2-5 years. NOTE: T-SCORE=SD OF THE YOUNG ADULT MEAN.
== END | disposition home or self-care (01) ==
LOC: RADBDWWP 10:04
PROVIDERS: ATTEND Obstetrics & Gynecology
DX: M81.0 Age-related osteoporosis without current pathological fracture (principal); M85.89 Other specified disorders of bone density and structure, multiple sites; K21.9 Gastro-esophageal reflux disease without esophagitis; M06.9 Rheumatoid arthritis, unspecified; Z78.0 Asymptomatic menopausal state
CPT/HCPCS: 77080

== ENCOUNTER → 2024-04-21 | Outpatient (CLI) | payer OTHER ==
[2024-04-21 08:25] VITALS: BP 122/57; PULSE 83; RESP 16; TEMP 98
--- NOTE | 2024-04-21 08:45 | P.HPOB ---
History of Present Illness H&P Date: 04/21/24 Chief Complaint: The patient is here for her routine gynecologic exam and ma mmogram. This is a 58-year-old G3, P3 with an LMP of 2011. The patient continues to have a right vulvar cyst. She states it does not cause her any problems. She has had it for many years. She is otherwise without gynecologic complaints and denies any postmenopausal bleeding. Review of Systems The patient has gained 17 pounds over the last year. She denies respiratory, cardiac, or G.I. problems. Past Medical History Past Medical History: GERD/Reflux, Hyperlipidemia, Osteoarthritis (OA), Rheumatoid Arthritis (RA) Additional Past Medical History / Comment(s): Hx kidney stones. History of osteopenia. PAST SENIOR ENVIRONMENTAL SCIENTIST HISTORY: History of genital warts in the past. No other history of STDs. History of Any Multi-Drug Resistant Organisms: None Reported Past Surgical History: Joint Replacement, Orthopedic Surgery, Tonsillectomy, Tubal Ligation Additional Past Surgical History / Comment(s): left foot bunion/hammertoe surgery. Left hip replacement. L/S Katheryn fundoplication 2021. Incomplete colonoscopy followed by barium enema in 2021. Past Anesthesia/Blood Transfusion Reactions: No Reported Reaction Past Psychological History: Depression Smoking Status: Never smoker Past Alcohol Use History: Rare (1-2 drinks per year.) Past Drug Use History: None Reported Additional History: She is single and has been with her boyfriend since 2004 and they live together. They are sexually active. She cares for an elderly person. - Past Family History Mother Family Medical History: Cancer, Deep Vein Thrombosis (DVT) Additional Family Medical History / Comment(s): Uterine cancer. Maternal uncle had leukemia. Father Additional Family Medical History / Comment(s): . Alcoholic. Medications and Allergies Home Medications Medication Instructions Recorded Confirmed Type Atorvastatin [Lipitor] 20 mg PO DAILY 06/03/19 02/12/23 History Calcium Carbonate/Vitamin D3 1 each PO DAILY 06/03/19 02/12/23 History [Calcium 500-Vit D3 5 Mcg (200 Iu)] Diclofenac Sodium [Voltaren] 75 mg PO BID 06/03/19 02/12/23 History Glucos Sul 2Kcl/MSM/Chond/C/Mn 1 each PO DAILY 06/03/19 02/12/23 History [Glucosamine Chondroitin Cap] Multivitamins, Thera [Multivitamin 1 tab PO DAILY 06/03/19 02/12/23 History (formulary)] Omeprazole [PriLOSEC] 20 mg PO HS 06/03/19 02/12/23 History Acetaminophen Tab [Tylenol] 650 mg PO Q6H #30 tab 03/07/22 02/12/23 Rx Potassium Citrate [Potassium 10 meq PO BID 02/12/23 02/12/23 History Citrate ER] Baricitinib [Olumiant] 2 mg PO DAILY 04/21/24 04/21/24 History buPROPion XL [Wellbutrin XL] 150 mg PO DAILY 04/21/24 04/21/24 History metHOTREXate sodium [Methotrexate] 2.5 mg PO WEEKLY 04/21/24 04/21/24 History Allergies Allergy/AdvReac Type Severity Reaction Status Date / Time sulfamethoxazole Allergy Unknown Verified 04/21/24 08:20 [From Bactrim] trimethoprim [From Bactrim] Allergy Unknown Verified 04/21/24 08:20 Exam Vital Signs Temp Pulse Resp BP Pulse Ox 04/21/24 08:22 98 F 83 16 122/57 95 Intake and Output 04/20/24 04/21/24 04/21/24 22:59 06:59 14:59 Other: Weight 91.172 kg Height 5 feet 2 inches, weight 201 pounds, BMI 36.8. This is a well-developed well-nourished white female who is alert and oriented times 3 in no acute distress. HEENT: Within normal limits. NECK: Supple without mass or thyromegaly. CHEST AND LUNGS: Clear to auscultation. HEART: Regular rate and rhythm. BREASTS: Are without mass or discharge. AXILLARY EXAM: Negative for adenopathy. BACK: Negative for CVA tenderness. ABDOMEN: Soft, nontender, without palpable masses. PELVIC EXAM: External genitalia reveals mild atrophy. There is a stable 10 x 8 mm right labial inclusion cyst which has a benign appearance and is nontender. Cervix and vagina appear normal with mild atrophy. There is no unusual discharge. There is no evidence of prolapse. The uterus is midposition, nongravid size and nontender. There are no palpable adnexal masses or tenderness. RECTAL EXAM: Rectovaginal exam is negative for mass or tenderness and is negative for occult blood. EXTREMITIES: Nontender. IMPRESSION: 1. 58-year-old menopausal female with stable 10 x 8 mm right labial inclusion cyst which is asymptomatic. Otherwise unremarkable gynecologic exam. 2. History of osteopenia. PLAN: 1. Pap smear cotest was performed. 2. Self breast awareness was discussed with the patient. We have also discussed symptoms associated with inflammatory breast cancer. 3. Screening mammogram will be done today. 4. Osteoporosis prevention was discussed. Will plan on repeating the bone density test in 1 year. 5. Colorectal cancer screening was discussed. She had an incomplete colonoscopy in 2021 and this was followed up with a barium enema which was unremarkable. 6. Weight control was discussed. I have stressed the importance of good nutrition, regular meals, adequate fiber, and regular exercise. She states she attributes her weight gain to eating too much junk food. 7. She was advised to return in one year for her annual well woman exam.
--- NOTE | 2024-04-21 12:07 | MM ---
Reason for Exam: Screening (asymptomatic). Last mammogram was performed 1 year(s) and 2 month(s) ago. Patient History: Menarche at age 14. First Full-Term at age 19. Postmenopausal. Patient used Hormonal Contraceptives for 5 years. Risk Values: Nohemy 5 year model risk: 0.9%. NCI Lifetime model risk: 5.9%. Prior Study Comparison: 10/18/2020 Right Diagnostic Mammogram, [facility]. 11/07/2021 Bilateral Screening Mammogram, [facility]. 02/12/2023 Bilateral MG 3D screening mammo w/cad, [facility]. Tissue Density: There are scattered areas of fibroglandular density. Findings: Analyzed By CAD. Right breast: There is no suspicious group of microcalcifications or new suspicious mass. Left breast: There is no suspicious group of microcalcifications or new suspicious mass. Overall Assessment: Negative, BI-RAD 1 Management: Screening Mammogram of both breasts in [address] [facility] will attempt to contact patient to return for supplemental views and ultrasound if indicated. Patient should continue monthly self-breast exams. A clinical breast exam by your physician is recommended on an annual basis. This exam should not preclude additional follow-up of suspicious palpable abnormalities. Note on Nohemy scores and lifetime risk: 1. A Nohemy score greater than 3% is considered moderate risk. If this is the case, consider specialist referral to assess eligibility for a risk reducing agent. 2. If overall lifetime risk for the development of breast cancer is 20% or higher, the patient may qualify for future screening with alternating mammogram and breast MRI. [facility], , 04/21/2024 12:04 PM. Electronically signed and approved by: Randy Pike DO
== END ==
LOC: WWCWWP 08:01
PROVIDERS: ATTEND Obstetrics & Gynecology
CPT/HCPCS: 77063; 77067

== ENCOUNTER → 2024-11-26 | Outpatient (CLI) | payer OTHER ==
[2024-11-26 15:36] LABS: HCT 41.4 % (37.2-50.0); HGB 13.1 g/dL (12.0-17.0); MCHC 31.6 g/dL (32.0-37.0); MCV 94.7 FL (80.0-97.0); Mean Platelet Volume 11.1 FL (9.5-12.2); NRBC Per 100 WBC 0 X 10*3/uL (0.00-0.01); Platelet Count 246 X 10*3/uL (140-440); RBC 4.37 X 10*6/uL (4.10-5.60); RDW 14.1 % (11.5-14.5)
[2024-11-26 18:26] LABS: Appearance,Urine Clear (Clear); Bilirubin,Urine Negative (Negative); Blood,Urine Negative (Negative); Color,Urine Yellow (Yellow); Ketones,Urine Negative (Negative); Nitrite,Urine Negative (Negative); Specific Gravity,Urine 1.016 (1.001-1.030); Urobilinogen,Urine 0.2 E.U./DL
[2024-11-26 21:01] LABS: Anti-DNA, DS unit <1.0 IU/mL; DNA Double-Stranded Negative (Negative)
[2024-11-26 22:09] LABS: Microalbumin Creatinine Ratio <14 mg/g Cr (0-30); Urine Creatinine 86.6 mg/dL (28.0-259.0)
[2024-11-26 22:26] LABS: ALT 31 U/L (8-49); AST 27 U/L (13-35); Albumin 4.2 g/dL (3.8-4.9); Albumin/Globulin Ratio 1.75 Ratio (1.60-3.17); Alkaline Phosphatase 91 U/L (41-126); BUN/Creat Ratio 12.42 Ratio (12.00-20.00); Blood Urea Nitrogen 14.9 mg/dL (9.0-27.0); Chloride 106 mmol/L (96-109); Ferritin 28.8 ng/mL (10.0-322.0); Globulin 2.4 g/dL (1.6-3.3); Glucose 102 mg/dL (70-110); Iron 65 UG/DL (50-175); Potassium 4.9 mmol/L (3.5-5.5); Sodium 142 mmol/L (135-145); Total Bilirubin 0.5 mg/dL (0.3-1.2); Total Iron Binding Capacity 414 UG/DL (228-460); Total Protein 6.6 g/dL (6.2-8.2); Uric Acid 5.5 mg/dL (2.9-8.7)
[2024-11-26 22:41] LABS: Magnesium 1.9 mg/dL (1.5-2.4); Phosphorus 3.6 mg/dL (2.4-5.1)
[2024-11-27 00:13] LABS: Hepatitis A Antibody IgM Nonreactive (Nonreactive); Hepatitis B Core IgM Nonreactive (Nonreactive); Hepatitis C IgG Antibody Nonreactive (Nonreactive)
[2024-11-27 01:56] LABS: Hepatitis B Surface Antigen Nonreactive (Nonreactive)
[2024-11-27 12:27] LABS: Free Kappa Lt Chain Qnt, Serum 2.85 mg/dL (0.33-1.94)
[2024-11-27 13:41] LABS: C-ANCA <1:20 Titer (<1:20)
== END | disposition home or self-care (01) ==
LOC: LABWHC1 11:30
PROVIDERS: ATTEND Internal Medicine
DX: N39.0 Urinary tract infection, site not specified (principal); N18.31 Chronic kidney disease, stage 3a; D63.1 Anemia in chronic kidney disease; E55.9 Vitamin D deficiency, unspecified; N25.81 Secondary hyperparathyroidism of renal origin; M10.9 Gout, unspecified
CPT/HCPCS: 36415; 80053; 80074; 81003; 82043; 82306; 82570; 82728; 83516; 83540; 83550; 83735; 83883; 83970; 84100; 84166; 84550; 85027; 86038; 86039; 86160; 86162; 86225; 86255; 86334

== ENCOUNTER 2024-12-17 08:59 | Day surgery (SDC) | payer OTHER ==
[2024-12-16 08:31] VITALS: BMI 38.0
[2024-12-17] MEDS: IV FLUID CONTINUATION 1,000 ML IV ONE (09:31)
[2024-12-17 09:46] VITALS: TEMP 97.4
[2024-12-17] MEDS: LACTATED RINGERS 1,000 ML IV SCH (09:49)
[2024-12-17] MEDS ORDERED: LIDOCAINE 2% (PF) 20 MG/ML 5 ML VIAL ONE (10:10)
[2024-12-17] MEDS ORDERED: PROPOFOL 10 MG/ML 20 ML VIAL IV ONE (10:10)
--- NOTE | 2024-12-17 10:20 | P.OP ---
Date of Procedure: 12/17/24 Preoperative Diagnosis: Gerd Postoperative Diagnosis: Antral gastritis Possible slipped fundoplication Procedure(s) Performed: EGD Anesthesia: MAC Surgeon: Oli Chavez Pathology: other (Antrum) Condition: stable Disposition: PACU Description of Procedure: Patient was placed in the table in the lateral position. She received IV sedation. D the gastroscope was placed oropharynx passed in the esophagus into the stomach. Scope was replaced through the pylorus. The 1st and 2nd portion of the duodenum appeared normal. Performed. The scope was retroflexed and the medial stomach appeared normal. The fundoplication wrap appeared to be just below the GE junction. The distal esophagus stable. The proximal esophagus appeared normal. Scope withdrawn the patient.
[2024-12-17 10:39] VITALS: BP 132/82; PULSE 72; RESP 16
== END 2024-12-17 11:16 | disposition home or self-care (01) ==
LOC: ORWHC2ENDO 08:59
PROVIDERS: ATTEND Surgery
DX: K29.50 Unspecified chronic gastritis without bleeding (principal); K21.9 Gastro-esophageal reflux disease without esophagitis
CPT/HCPCS: 88305; 43239; J2003; J2704

== ENCOUNTER → 2024-12-23 | Outpatient (CLI) | payer OTHER ==
--- NOTE | 2024-12-23 10:36 | FL ---
EXAMINATION TYPE: FL UGI DATE OF EXAM: 12/23/2024 10:07 AM COMPARISON: None. CLINICAL INDICATION: Female, 59 years old with history of K21.9 GERD, patient with history of hiatal hernia repair 2 years ago with recurrent reflux. Total Fluoroscopy Time: 1 minute 48 seconds Total DAP: 78 mGycm2. 55 images obtained. FINDINGS: The esophagus has a normal course and caliber. However, there is [id number] dysmotility with te rtiary peristaltic waves, blunted secondary stripping waves, and delayed clearance from the distal es ophagus and some intraesophageal reflux also noted. There is recurrence of a moderate-sized hiatal hernia, possibly occurring above the Katheryn wrap. Blanka re gastroesophageal reflux during positional and Valsalva maneuver. Otherwise, the stomach and duodenum are free of any persistent filling defect and demonstrate a hay l mucosal pattern. There is an incidental small diverticulum of the third portion of the duodenum. Additional continuous drinking while imaging the cervical esophagus shows no penetration or aspiratio n. IMPRESSION: 1. Recurrent moderate-sized hiatal hernia, possibly occurring above the Katheryn wrap. Severe gastroeso phageal reflux. 2. Mild to moderate esophageal dysmotility. [facility], , 12/23/2024 10:34 AM
== END | disposition home or self-care (01) ==
LOC: RADFLMAIN 09:23
PROVIDERS: ATTEND Surgery
DX: K21.9 Gastro-esophageal reflux disease without esophagitis (principal); K44.9 Diaphragmatic hernia without obstruction or gangrene; K22.4 Dyskinesia of esophagus
CPT/HCPCS: 74240

== ENCOUNTER 2025-01-12 09:16 | Day surgery (SDC) | payer OTHER ==
[~2025-01-12 09:16] MED LIST changes: -ACETAMINOPHEN TAB 500 MG TAB PO PRN; -DEXAMETHASONE SOD PHOSPHATE 4 MG/ML 1 ML VIAL IV ONE; -HEPARIN SODIUM,PORCINE/PF 5,000 UNIT/0.5 ML SYRINGE SQ PRN; -ONDANSETRON 4 MG/2 ML VIAL IVP ONE; -SCOPOLAMINE 1 MG/72 HR PATCH TRANSDERM ONE
[2025-01-12] MEDS: ONDANSETRON 4 MG/2 ML VIAL IVP ONE (09:53)
[2025-01-12] MEDS: LACTATED RINGERS 1,000 ML IV SCH (09:53)
[2025-01-12] MEDS: DEXAMETHASONE SOD PHOSPHATE 4 MG/ML 1 ML VIAL IV ONE (09:53)
[2025-01-12] MEDS: ACETAMINOPHEN TAB 500 MG TAB PO PRN (09:53)
[2025-01-12] MEDS: HEPARIN SODIUM,PORCINE 5,000 UNIT/ML 1 ML VIAL SQ PRN (09:53)
[2025-01-12] MEDS: IV FLUID CONTINUATION 1,000 ML IV ONE ×2 (10:04→13:30)
[2025-01-12] MEDS ORDERED: PROPOFOL 10 MG/ML 20 ML VIAL IV ONE (10:11)
[2025-01-12] MEDS ORDERED: SUCCINYLCHOLINE CHLORIDE 200 MG/10 ML VIAL IV ONE (10:11)
[2025-01-12] MEDS ORDERED: PHENYLEPHRINE 10 MG/ML VIAL ONE (10:11)
[2025-01-12] MEDS ORDERED: NEOSTIGMINE 1 MG/ML 10 ML VIAL ONE (10:11)
[2025-01-12] MEDS ORDERED: MIDAZOLAM 2 MG/2 ML VIAL ONE (10:11)
[2025-01-12] MEDS ORDERED: GLYCOPYRROLATE 0.2 MG/ML 2 ML VIAL ONE (10:11)
[2025-01-12] MEDS ORDERED: fentaNYL (PF) 50 MCG/ML 2 ML AMP ONE (10:11)
[2025-01-12] MEDS ORDERED: LIDOCAINE 1% INJ 10MG/ML (20 ML MDV) ONE (10:11)
[2025-01-12] MEDS ORDERED: KETOROLAC 15 MG/ML 1 ML VIAL ONE (10:11)
[2025-01-12] MEDS ORDERED: KETAMINE HCL IN 0.9 % NACL 50 MG/5 ML SYRINGE ONE (10:11)
[2025-01-12] MEDS: LIDOCAINE 1%-EPI 1:100,000 20 ML VIAL SQ ONE ×2 (10:28→10:37)
[2025-01-12] MEDS ORDERED: ONDANSETRON 4 MG/2 ML VIAL IVP PRN (11:02)
--- NOTE | 2025-01-12 11:02 | P.OP ---
Date of Procedure: 01/12/25 Preoperative Diagnosis: Recurrent hiatal hernia Postoperative Diagnosis: Recurrent hiatal hernia Procedure(s) Performed: Laparoscopic repair of recurrent hiatal hernia Anesthesia: ANIVAL Surgeon: Oli Chavez Estimated Blood Loss (ml): 5 Pathology: none sent Condition: stable Disposition: PACU Description of Procedure: The patient was placed on the operating table in the supine position. The patient received general anesthesia. And was placed in dorsal lithotomy position. The patient was prepped and draped in the usual sterile fashion. The skin incision sites were anesthetized with 1% local Xylocaine. The skin was incised in the left periumbilical area and then using a blade less 5 mm trocar under direct visualization panel cavity was entered. After adequate insufflation the laparoscope was then placed into the peritoneal cavity. Next a 5 mm trochars placed in the right epigastric position. Another 5 millimeter trocar the right lateral position. Another 5 millimeter trocar in the left lateral position a 5 mm trocar is placed in the left epigastric position. And then the initial 5 mm trocar was exchanged for a 10 mm trocar. The left lateral lobe liver was retracted. The hernia was seen. The crural defect was then dissected using the Harmonic scissors device. A 360 crural dissection was performed the esophagus stomach was reduced back into the peritoneal Cavity. The previous fundoplication wrap was undone. The sutures were released. And the adhesions were cut. The crural defect was then closed using 2-0 Ethibond suture. There was no injury seen to the stomach or esophagus. The dilator was then withdrawn. The abdomen was irrigated there is no bleeding seen. The trochars were then withdrawn and then skin incision sites were closed using 3-0 Monocryl suture Steri-Strips are applied. Patient thought procedure well and sent to recovery room in stable condition.
[2025-01-12] MEDS: HYDROmorphone 0.5 MG/0.5 ML SYRINGE IVP PRN (11:29)
[2025-01-12] MEDS: SCOPOLAMINE 1 MG/72 HR PATCH TRANSDERM ONE (14:11)
[2025-01-12] MEDS: D5-0.45% NACL WITH KCL 20MEQ/L 1,000 ML IV SCH (16:19)
[2025-01-12] MEDS: METOCLOPRAMIDE 5 MG/ML 2 ML VIAL IVP SCH (17:53)
[2025-01-12] MEDS: HYDROmorphone 1 MG/ML 1 ML SYRINGE IVP PRN (21:13)
--- NOTE | 2025-01-13 03:53 | P.CONS ---
History of Present Illness - Reason for Consult Consult date: 01/12/25 Medical management, status post laparoscopic repair of hiatal hernia - History of Present Illness This is a pleasant 59-year-old female who was admitted to general surgery for recurrent hiatal hernia and is status post laparoscopic repair of recurrent hernia, postop day 0. Patient reports she follows with Dr. Ford in the outpatient setting with a past medical history of GERD, hyperlipidemia, osteoarthritis, rheumatoid, depression, and recurrent issues with hiatal hernia. On exam patient is lethargic but easily arousable currently maintained on 2 L via nasal cannula with oxygen saturations of 95 to 97% recommend removing O2 as patient does not wear this at home. Patient reports it has been on since surgery and denies any shortness of breath. Recommend incentive spirometer use at least 10 times every hour while awake. Patient encouraged to increase activity as tolerated. Patient is currently n.p.o. per surgery and will be advanced per surgery likely to clear liquids in the morning. No new labs avail able and will add basic labs for a.m. REVIEW OF SYSTEMS: CONSTITUTIONAL: No fever, no malaise, no fatigue. HEENT: No recent visual problems or hearing problems. Denied any sore throat. CARDIOVASCULAR: No chest pain, orthopnea, PND, no palpitations, no syncope. PULMONARY: No shortness of breath, no cough, no hemoptysis. GASTROINTESTINAL: No diarrhea, no nausea, no vomiting, reports of minor abdominal discomfort NEUROLOGICAL: No headaches, no weakness, no numbness. HEMATOLOGICAL: Denies any bleeding or petechiae. GENITOURINARY: Denies any burning micturition, frequency, or urgency. MUSCULOSKELETAL/RHEUMATOLOGICAL: Denies any joint pain, swelling, or any muscle pain. ENDOCRINE: Denies any polyuria or polydipsia. The rest of the 14-point review of systems is negative. PHYSICAL EXAMINATION: GENERAL: The patient is asleep although easily arousable, alert and oriented x3, not in any acute distress. Well developed, well nourished. Obese HEENT: Pupils are round and equally reacting to light. EOMI. No scleral icterus. No conjunctival pallor. Normocephalic, atraumatic. No pharyngeal erythema. No thyromegaly. CARDIOVASCULAR: S1 and S2 muffled PULMONARY: Diminished breath sounds bilaterally otherwise chest is clear to auscultation, no wheezing or crackles. ABDOMEN: Soft, mildly tender, nondistended, hypoactive bowel sounds. No palpable organomegaly. MUSCULOSKELETAL: No joint swelling or deformity. EXTREMITIES: No cyanosis, clubbing, or pedal edema. NEUROLOGICAL: Gross neurological examination did not reveal any focal deficits. SKIN: No rashes. Assessment: Status post laparoscopic hiatal hernia repair History of GERD Hyperlipidemia Osteoarthritis Rheumatoid arthritis history History of depression Obesity with a BMI 37.7 GI prophylaxis DVT prophylaxis Full code Plan: Patient was admitted under general surgery for recurrent hiatal hernia issues status post laparoscopic hernia repair, postop day 0 Home medications currently being held at this time as patient is n.p.o. and will be resumed once cleared by surgery to initiate diet Recommend incentive spirometer use at least 10 times every hour while awake Encourage increase activity as tolerated Basic labs for CBC, BMP, ordered for a.m. replace electrolytes per protocol Thank you kindly for this consultation. We will continue to follow with general surgery during hospitalization. The impression and plan of care has been dictated by Lenore Andres, Nurse Practitioner as directed. Dr. Yosef MD I have performed a history and examination and MDM of this patient, discussed the same with the dictator, and agree with the dictator's assessment and plan as written ,documented as a scribe. Based on total visit time, I have performed more than 50% of the visit. Past Medical History Past Medical History: GERD/Reflux, Hyperlipidemia, Osteoarthritis (OA), Rheumatoid Arthritis (RA) Additional Past Medical History / Comment(s): Hx kidney stones. Hx osteopenia. Hiatal hernia. History of Any Multi-Drug Resistant Organisms: None Reported Past Surgical History: Joint Replacement, Orthopedic Surgery, Tonsillectomy, Tubal Ligation Additional Past Surgical History / Comment(s): Left foot bunion/hammertoe surgery, left hip replacement, Katheryn fundoplication 2021, incomplete colonoscopy followed by barium enema, EGD, right knee surgery. , hiatal hernia repair 01/12/25 Past Anesthesia/Blood Transfusion Reactions: No Reported Reaction Past Psychological History: Depression Smoking Status: Never smoker Past Alcohol Use History: Rare Past Drug Use History: None Reported - Past Family History Mother Family Medical History: Cancer, Deep Vein Thrombosis (DVT) Additional Family Medical History / Comment(s): Uterine cancer. Maternal uncle had leukemia. Father Additional Family Medical History / Comment(s): . Alcoholic. Medications and Allergies Home Medications Medication Instructions Recorded Confirmed Type Atorvastatin [Lipitor] 20 mg PO HS 06/03/19 01/12/25 History Calcium Carbonate/Vitamin D3 1 each PO HS 06/03/19 01/12/25 History [Calcium 500-Vit D3 5 Mcg (200 Iu)] Glucos Sul 2Kcl/MSM/Chond/C/Mn 1 each PO HS 06/03/19 01/12/25 History [Glucosamine Chondroitin Cap] Multivitamins, Thera [Multivitamin 1 tab PO HS 06/03/19 01/12/25 History (formulary)] Omeprazole [PriLOSEC] 20 mg PO HS 06/03/19 01/12/25 History Potassium Citrate [Potassium 10 meq PO BID 02/12/23 01/12/25 History Citrate ER] buPROPion XL [Wellbutrin XL] 150 mg PO HS 04/21/24 01/12/25 History metHOTREXate sodium [Methotrexate] 25 mg PO TH 04/21/24 01/12/25 History Diclofenac Sodium Gel [Voltaren 1% 4 gm TOPICAL QID PRN 12/16/24 01/12/25 History Gel] Folic Acid 1 mg PO HS 12/16/24 01/12/25 History Treprostinil Diolamine [Orenitram 1 tab PO Q30D 12/16/24 01/12/25 History Monthly (0.125 mg) Titration Pack] Acetaminophen Tab [Tylenol] 650 mg PO Q6H PRN 01/06/25 01/12/25 History Allergies Allergy/AdvReac Type Severity Reaction Status Date / Time sulfamethoxazole Allergy Swelling Verified 01/12/25 14:40 [From Bactrim] trimethoprim [From Bactrim] Allergy Swelling Verified 01/12/25 14:40 Physical Exam Vitals: Vital Signs Temp Pulse Pulse Resp BP Pulse Ox 01/12/25 16:18 127/82 01/12/25 14:35 97.6 F 70 16 171/91 95 01/12/25 14:00 67 16 158/83 98 01/12/25 13:45 84 16 161/78 98 01/12/25 13:30 73 16 153/88 95 01/12/25 13:15 62 16 164/80 95 01/12/25 13:00 67 16 168/80 95 01/12/25 12:45 67 16 179/89 95 01/12/25 12:30 71 16 166/76 95 01/12/25 12:15 75 16 169/86 95 01/12/25 12:00 74 16 174/71 95 01/12/25 11:45 81 16 169/75 99 01/12/25 11:30 90 16 181/93 99 01/12/25 11:18 98 F 79 16 178/82 99 01/12/25 10:05 97.3 F L 67 16 142/82 97 Intake and Output 01/12/25 01/12/25 01/12/25 06:59 14:59 22:59 Intake Total 1100 0 Output Total 10 Balance 1090 0 Intake: IV 1100 Oral 0 Output: Estimated Blood Loss 10 Other: # Voids 1 0 Weight 93.5 kg
[2025-01-13] MEDS: ENOXAPARIN 40 MG/0.4 ML SYRINGE SQ SCH (07:55)
[2025-01-13 08:11] LABS: Basophils # (A) 0.01 X 10*3/uL (0.00-0.10); Basophils % (A) 0.2 %; Eosinophils # (A) 0 X 10*3/uL (0.04-0.35); Eosinophils % (A) 0 %; HCT 37.9 % (37.2-50.0); HGB 12.0 g/dL (12.0-17.0); Immature Grans, Automated 0.40 %; Lymphocytes # (A) 0.58 X 10*3/uL (0.90-5.00); Lymphocytes % (A) 10.4 %; MCH 29.8 pg (27.0-32.0); MCHC 31.7 g/dL (32.0-37.0); MCV 94.0 FL (80.0-97.0); Monocytes # (A) 0.26 X 10*3/uL (0.20-1.00); Monocytes % (A) 4.7 %; NRBC Per 100 WBC 0 X 10*3/uL (0.00-0.01); Neutrophils # (A) 4.71 X 10*3/uL (1.80-7.70); Neutrophils % (A) 84.3 %; Platelet Count 208 X 10*3/uL (140-440); RBC 4.03 X 10*6/uL (4.10-5.60); RDW 13.7 % (11.5-14.5); WBC 5.58 X 10*3/uL (4.50-10.00)
[2025-01-13 08:15] LABS: Anion Gap 10.00 mmol/L (4.00-12.00); BUN/Creat Ratio 14.80 Ratio (12.00-20.00); Blood Urea Nitrogen 14.8 mg/dL (9.0-27.0); Calcium 8.9 mg/dL (8.7-10.3); Carbon Dioxide 24.0 mmol/L (21.6-31.8); Chloride 105 mmol/L (96-109); Glucose 126 mg/dL (70-110); Potassium 4.3 mmol/L (3.5-5.5); Sodium 139 mmol/L (135-145)
[2025-01-13 11:52] VITALS: BMI 37.7
[2025-01-13 13:48] VITALS: BP 137/73; PULSE 66; RESP 14; TEMP 98.4
--- NOTE | 2025-01-13 14:13 | P.DS ---
Providers Expected date of discharge: 01/13/25 Attending physician: Oli Chavez Consults: 01/12/25 11:02 Consult Physician Routine Consulting Provider: David Gibson Consult Reason/Comments: Comanagement Do you want consulting provider notified?: Yes [facility] Course: This a 59-year-old female who underwent laparoscopic repair of recurrent hiatal hernia. Patient did well postoperative. On the day of discharge her vital signs are stable. Her abdomen is soft nontender. Procedures: Laparoscopic hiatal hernia repair Patient Condition at Discharge: Good Plan - Discharge Summary Discharge Rx Participant: Yes New Discharge Prescriptions: New Acetaminophen Tab [Tylenol] 650 mg PO Q6H #30 tab Docusate [Colace] 100 mg PO BID #20 capsule Ibuprofen [Motrin] 600 mg PO Q6HR PRN #40 tab PRN Reason: Pain oxyCODONE HCL [OxyIR] 5 mg PO Q6H PRN 3 Days #10 tab PRN Reason: Pain No Action Multivitamins, Thera [Multivitamin (formulary)] 1 tab PO HS Atorvastatin [Lipitor] 20 mg PO HS Omeprazole [PriLOSEC] 20 mg PO HS Glucos Sul 2Kcl/MSM/Chond/C/Mn [Glucosamine Chondroitin Cap] 1 each PO HS Calcium Carbonate/Vitamin D3 [Calcium 500-Vit D3 5 Mcg (200 Iu)] 1 each PO HS metHOTREXate sodium [Methotrexate] 25 mg PO TH Folic Acid 1 mg PO HS Diclofenac Sodium Gel [Voltaren 1% Gel] 4 gm TOPICAL QID PRN PRN Reason: Pain Potassium Citrate [Potassium Citrate ER] 10 meq PO BID buPROPion XL [Wellbutrin XL] 150 mg PO HS Treprostinil Diolamine [Orenitram Monthly (0.125 mg) Titration Pack] 1 tab PO Q30D Acetaminophen Tab [Tylenol] 650 mg PO Q6H PRN PRN Reason: Pain Discharge Medication List Atorvastatin [Lipitor] 20 mg PO HS 06/03/19 [History] Calcium Carbonate/Vitamin D3 [Calcium 500-Vit D3 5 Mcg (200 Iu)] 1 each PO HS 06/03/19 [History] Glucos Sul 2Kcl/MSM/Chond/C/Mn [Glucosamine Chondroitin Cap] 1 each PO HS 06/03/19 [History] Multivitamins, Thera [Multivitamin (formulary)] 1 tab PO HS 06/03/19 [History] Omeprazole [PriLOSEC] 20 mg PO HS 06/03/19 [History] Potassium Citrate [Potassium Citrate ER] 10 meq PO BID 02/12/23 [History] buPROPion XL [Wellbutrin XL] 150 mg PO HS 04/21/24 [History] metHOTREXate sodium [Methotrexate] 25 mg PO TH 04/21/24 [History] Diclofenac Sodium Gel [Voltaren 1% Gel] 4 gm TOPICAL QID PRN 12/16/24 [History] Folic Acid 1 mg PO HS 12/16/24 [History] Treprostinil Diolamine [Orenitram Monthly (0.125 mg) Titration Pack] 1 tab PO Q30D 12/16/24 [History] Acetaminophen Tab [Tylenol] 650 mg PO Q6H PRN 01/06/25 [History] Acetaminophen Tab [Tylenol] 650 mg PO Q6H #30 tab 01/13/25 [Rx] Docusate [Colace] 100 mg PO BID #20 capsule 01/13/25 [Rx] Ibuprofen [Motrin] 600 mg PO Q6HR PRN #40 tab 01/13/25 [Rx] oxyCODONE HCL [OxyIR] 5 mg PO Q6H PRN 3 Days #10 tab 01/13/25 [Rx] Follow up Appointment(s)/Referral(s): Oli Chavez MD [STAFF PHYSICIAN] - 01/19/25 3:20 pm Patient Instructions/Handouts: Acetaminophen (By mouth), Ibuprofen (By mouth), Laxative, Stool Softeners (By mouth), Oxycodone, Rapid Release (By mouth), Laparoscopic Hiatal Hernia Repair (DC) Discharge Disposition: HOME SELF-CARE
[2025-01-13] MEDS: ACETAMINOPHEN TAB 325 MG TAB PO PRN (14:26)
== END 2025-01-13 15:16 | disposition home or self-care (01) ==
LOC: OR 09:16 → 5NMEDONC 11:15 → OR 01-13 15:16
PROVIDERS: ATTEND Surgery
DX: K44.9 Diaphragmatic hernia without obstruction or gangrene (principal); K21.9 Gastro-esophageal reflux disease without esophagitis; E66.9 Obesity, unspecified; E78.5 Hyperlipidemia, unspecified; M06.9 Rheumatoid arthritis, unspecified; M19.90 Unspecified osteoarthritis, unspecified site; M85.80 Other specified disorders of bone density and structure, unspecified site; Z68.37 Body mass index [BMI] 37.0-37.9, adult; Z88.1 Allergy status to other antibiotic agents; Z88.2 Allergy status to sulfonamides; Z98.51 Tubal ligation status; Z90.89 Acquired absence of other organs; Z87.442 Personal history of urinary calculi; Z79.899 Other long term (current) drug therapy
CPT/HCPCS: 80048; 85025; 43281; J1644; J1100; J2765 ×2; J0690; J2405; J1650; J1171 ×2